=== PATIENT | male | born 1940 | race Caucasian/White ===

== ENCOUNTER 2017-11-02 06:47 | Inpatient (IN) ==
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
[2017-11-02] MEDS ORDERED: MIDAZOLAM 2mg/2ml INJECTION ONE (08:09)
[2017-11-02] MEDS ORDERED: FentaNYL 100 MCG/2 ML INJECTION ONE (08:09)
[2017-11-02] MEDS ORDERED: PROPOFOL 500 MG/50 ML VIAL IV ONE (08:16)
[2017-11-02] MEDS ORDERED: LIDOCAINE VISCOUS 2% ORAL LIQUID 15ml ONE (08:35)
--- NOTE | 2017-11-02 09:17 | General Surgery Procedure Note ---
Date of Procedure: 11/02/17 Surgeon: Deborah Postoperative Diagnosis: Malnutrition Procedure: EGD with placement of PEG tube Estimated Blood Loss: See Anesthesia Record.
[2017-11-02] MEDS ORDERED: BUDESONIDE INH.SOLN 0.5mg/2ml NEB AEROSOL PRN (10:02)
[2017-11-02] MEDS: D5-1/2NS with KCL 20mEq 1,000 ML IV SCH ×2 (10:07→19:41)
[2017-11-02] MEDS: MORPHINE SULFATE 10 MG SYRINGE IV PRN ×4 (10:16→19:36)
[2017-11-02] MEDS ORDERED: FALL RISK - PHARMACY CONSULT XX ONE (10:38)
[2017-11-02] MEDS ORDERED: LIDOCAINE 1% (10mg/ml) 2mL INJ PF SDV ID ONE (13:55)
[2017-11-02] MEDS ORDERED: CEFAZOLIN 1 G INJECTION IVP ONE (13:56)
[2017-11-02] MEDS ORDERED: LR 1,000 ML IV SCH (14:00)
[2017-11-02] MEDS: PANTOPRAZOLE 40 MG INJECTION IVP SCH ×2 (19:35→21:16)
[2017-11-03] MEDS: MORPHINE SULFATE 10 MG SYRINGE IV PRN ×6 (00:43→21:09)
[2017-11-03] MEDS: D5-1/2NS with KCL 20mEq 1,000 ML IV SCH ×2 (05:15→17:35)
[2017-11-03] MEDS: PANTOPRAZOLE 40 MG INJECTION IVP SCH ×2 (10:28→21:08)
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
--- NOTE | 2017-11-03 12:24 | Operative Note ---
DATE OF OPERATION 11/02/2017 PREOPERATIVE DIAGNOSES 1. Dysphagia 2. Tracheal penetration with all given consistencies demonstrated on 2016 modified barium swallow study. 3. Generalized weakness. 4. Weight loss. POSTOPERATIVE DIAGNOSES 1. Dysphagia 2. Tracheal penetration with all given consistencies demonstrated on 2016 modified barium swallow study. 3. Generalized weakness. 4. Weight loss. 5. Duodenal ulcer. 6. Recent active upper gastrointestinal tract bleeding from duodenal ulcer. OPERATION Esophagogastroduodenoscopy with directed placement of percutaneous endoscopic gastrostomy tube (percutaneous endoscopic gastrostomy). SURGEON Dr. Cabrera [facility] ASA Class 3 FINDINGS The esophagus appeared normal. The stomach appeared normal except for the presence of some old black flecks of blood in the stomach thought to be present from recent gastrointestinal tract bleeding from the duodenal ulcer. The patient did have a [id number] size ulcer at the duodenal bulb. This was a deep ulcer. There was some white fibrinous exudate at the base of some of this ulcer. Some of the base of the ulcer was covered with old black blood clot which was adherent to the base of the ulcer. It was thought that the patient had been experiencing recent active gastrointestinal tract bleeding from the duodenal ulcer during the previous 24 hours. No abnormalities were seen at the esophagus to cause the dysphagia. No esophageal stricture was observed anywhere. There was no neoplastic disease identified at the esophagus. The pylorus was wide open. There was no gastric outlet obstruction. There were no retained solid or liquid food contents in the stomach. DESCRIPTION OF OPERATION The patient was brought to the operating room. The patient was kept on a cart. The patient was initially in [place] position. The patient was premedicated with intravenous sedation medication administered by the nurse bus attendant. The Olympus upper GI endoscope was used. The upper GI endoscope was introduced into the esophagus. The upper GI endoscope was advanced down through the esophagus and stomach and into the duodenum. The duodenal ulcer was identified. The upper GI endoscope was then withdrawn from the duodenum back into the stomach. The endoscopic biopsy forceps was used to obtain a sample of prepyloric antral gastric mucosa which was submitted for YENI test studies. The upper GI endoscope was retroflexed and the gastroesophageal junction was viewed from below. The upper GI endoscope was straightened out. The stomach was examined further. The position of the bed was then changed to supine position. Air was insufflated into the stomach. Room lights were dimmed. The tip of the upper GI endoscope was deflected to the anterior surface of the stomach. The abdominal skin was depressed with a finger at the intended insertion site at the left upper quadrant of the abdomen. The resulting depression at the anterior surface of the gastric wall was able to be seen easily with the upper GI endoscope. Light was also seen transilluminating through the abdominal wall from the tip of the upper GI endoscope. A site for insertion of the percutaneous endoscopic gastrostomy tube was marked on the skin at the left upper quadrant of the abdomen. This was at the point where there was maximum depression at the gastric wall as the skin at the left upper quadrant of the abdomen was depressed with a finger. The abdomen was prepped and draped in routine sterile fashion. The skin and all other abdominal wall structures were infiltrated with bupivacaine 0.25% without epinephrine at the intended insertion site. A [employer] guidewire percutaneous endoscopic gastrostomy system with soft silicone retention dome was used for the procedure. This contained a 20-Monegas[place] silicone gastrostomy feeding tube with a soft silicone retention dome. A short incision was made at the percutaneous endoscopic gastrostomy tube site at the left upper quadrant of the abdomen. A guidewire introducer needle was inserted percutaneously at the gastrostomy tube insertion site. The soft end of the guidewire was inserted through the introducer needle into the stomach. The polypectomy snare was introduced into the stomach through the operating channel of the upper GI endoscope. The snare was used to grasp the soft end of the guidewire. The upper GI endoscope and the polypectomy snare were then withdrawn out through the stomach and esophagus pulling the guidewire along with them out through the stomach and esophagus as the guidewire was being inserted through the introducer needle at the abdomen. The upper GI endoscope and the polypectomy snare were then removed from the patient. The guidewire was brought out along with them through the oropharynx. The snare was removed from the guidewire. The tapered dilator and attached gastrostomy tube were then introduced over the guidewire which was exiting from the patient' s mouth. The entire tapered dilator and attached gastrostomy tube were introduced onto the guidewire before the dilator was advanced down into the oropharynx. The tapered dilator and the attached gastrostomy tube were then advanced over the guidewire and into the oropharynx and through the esophagus into the stomach. The tapered dilator and the attached gastrostomy tube were then advanced further over the guidewire to advance the tapered dilator through the anterior wall of the stomach and the anterior abdominal wall at the gastrostomy tube insertion site. As the end of the tapered dilator came out through the abdominal wall at the gastrostomy tube insertion site, it was able to be grasped and pulled out through the anterior abdominal wall. This allowed the gastrostomy tube to be pulled out through the anterior abdominal wall. The guidewire was then removed by pulling it out through the abdominal site. The upper GI endoscope was once again introduced into the esophagus and passed down through the esophagus down into the stomach. The soft silicone retention dome was able to be visualized with the upper GI endoscope as it was pulled up into a position adjacent to the gastric mucosa. The soft silicone retention dome was able to be rotated freely at this time as it was in a final position against the gastric mucosa. There was no blanching of the gastric mucosa. Visualization with the upper GI endoscope did confirm correct placement of the soft silicone retention dome. The retention sleeve was then advanced over the tapered dilator over the gastrostomy tube down into a position around the gastrostomy tube adjacent to the skin. An external bolster was then also advanced over the tapered dilator and the gastrostomy tube into a position in contact with retention sleeve. The upper GI endoscope was removed from the patient. The distal end of the gastrostomy tube was divided to remove the tapered dilator. The Y port connector was inserted at the end of the gastrostomy tube. The gastrostomy tube was placed to dependent drainage. The patient appeared to tolerate the operation well. Sterile dressings were applied over the gastrostomy tube. The patient did continue to receive intravenous sedation medication administered by the nurse bus attendant throughout the procedure as necessary to maintain patient comfort. The patient appeared to tolerate the operation well. The patient was transferred from the operating room to the recovery room in satisfactory condition. DESHAUN
--- NOTE | 2017-11-03 12:53 | Progress Note ---
DATE 11/03/2017 POSTOP DAY #1 HISTORY This patient did undergo esophagogastroduodenoscopy with placement of a percutaneous endoscopic gastrostomy tube yesterday at [facility]. He tolerated that procedure well. The patient has had mental status changes through the night last night with agitation and confusion and disorientation. The nurses did place an abdominal binder over the dressing at the abdomen to keep the patient from pulling out his PEG tube. The patient has had to have a sitter present with him in the room at all times because of all these mental status changes. The patient has been having output of normal-appearing gastric contents from the PEG tube. I did consult Dr. Prince Avalos this morning for help with medical management of the patient. Dr. Avalos is the primary care physician for this patient. I did discuss the condition of the patient with Dr. Avalos this morning. PHYSICAL EXAMINATION VITAL SIGNS: Temperature of the patient is 97.6 degrees Fahrenheit axillary. Pulse is 114. Respiratory rate is 18. Blood pressure is 146/90. Oxygen saturation is 93% on room air. ABDOMEN: I did remove the abdominal binder and the abdominal dressings and examined the PEG tube site today. The PEG tube site does have a satisfactory appearance. New dressings were then reapplied to the PEG tube site and the abdominal binder was then reapplied. LABORATORY DATA Hemoglobin was 13.7 and hematocrit was 42.6 yesterday. White blood cell count is 7200 today. Hemoglobin is 13.4. Hematocrit is 41.9. Serum sodium is 149. Serum potassium is 3.7. Serum creatinine is 0.6. Serum albumin is 6.1 today. Total protein is 6.4. Serum prealbumin is 9.7 today. The YENI test study result from esophagogastroduodenoscopy yesterday is negative. IMPRESSION 1. Oropharyngeal dysphagia 2. Tracheal penetration with all given consistencies demonstrated on 2016 modified barium swallow study. 3. Protein calorie malnutrition with decreased serum albumin and decreased serum prealbumin. 4. Weight loss. 5. Status post esophagogastroduodenoscopy with placement of percutaneous endoscopic gastrostomy tube on 11/02/2017. 6. Duodenal ulcer. 7. Recent upper gastrointestinal tract bleeding from duodenal ulcer. 8. Mental status changes including agitation, confusion and disorientation. 9. Personal history of prostate cancer. PLAN 1. Continue sequential compression devices for deep venous thrombosis prophylaxis. 2. Start tube feedings at this time with half-strength [employer] HN tube feedings at 50 mL/hr. 3. Decrease rate of administration of intravenous fluids. 4. Continuation of Protonix 40 mg IV daily at this point for treatment of the duodenal ulcer. Further treatment of the duodenal ulcer can be changed from intravenous medication to medication given via the percutaneous endoscopic gastrostomy tube. We probably need to add some Carafate to the treatment for the duodenal ulcer. 5. Start medication administration to the patient via the percutaneous endoscopic gastrostomy tube. 6. I did order some intravenous Haldol on a p.r.n. basis for the patient for use in treating mental status changes. Intravenous Ativan can also be continued. Cause for the mental status changes is being evaluated by Dr. Avalos. He is a considering ordering a CT head scan for the patient. 7. Dr. Avalos is consulted for medical management of the patient at this time and I greatly appreciate his help with this. 8. Case Management was asked to see the patient yesterday to help with disposition of the patient and they are actively working on this at the present time. DSEHAUN
[2017-11-04] MEDS: MORPHINE SULFATE 10 MG SYRINGE IV PRN ×4 (03:56→20:08)
[2017-11-04] MEDS: D5-1/2NS with KCL 20mEq 1,000 ML IV SCH ×2 (03:59→21:17)
[2017-11-04] MEDS: PANTOPRAZOLE 40 MG INJECTION IVP SCH ×2 (10:03→20:06)
[2017-11-04] MEDS ORDERED: PROPRANOLOL 20 MG/5 ML PEG SCH (10:30)
--- NOTE | 2017-11-04 10:47 | Internal Med Progress Note ---
Internal Medicine Subjective Patient seen and examined in his room. at the bedside. Questions answered. Roger is a little restless this morning but just received medication from the nursing staff. His tube feeding is in place and working nicely. He seems to be tolerating his tube feedings well. His sodium and chloride is a little elevated so I'll add additional free water. His creatinine yesterday were demonstrated good renal function so I will proceed with the MRI with and without contrast of his brain today. There is still no explanation as of yet to the etiology of his new onset weakness, dysphagia, and dysphasia. His alkaline phosphatase was elevated and with a history of metastatic prostate cancer I will check a liver function test this morning which includes a GGT to look for source of this alkaline phosphatase elevation. Exam Vital Signs: Temperature 96.8 F 11/04/17 08:00 Pulse Rate 102 H 11/04/17 08:00 Respiratory Rate 20 11/04/17 08:00 Blood Pressure 156/69 H 11/04/17 08:00 Pulse Oximetry 95 11/04/17 08:00 Height/Weight/BMI: Height 5 ft 9 in Weight 65 kg Body Mass Index 21.2 - Constitutional Present: mild distress, disheveled, agitated - Routine HEENT Exam Head: Present: normocephalic, atraumatic Eye: Present: conjunctivae pink. Absent: conjunctival icterus, scleral injection ENT: Present: mucous membranes moist, oropharynx clear, nares patent - Routine Neck Exam Absent: JVD, lymphadenopathy, thyromegaly - Routine Respiratory Exam Present: CTA bilaterally. Absent: accessory muscle use, rales, rhonchi, wheezes - Routine Cardiovascular Exam Present: RRR. Absent: S3, S4 - Routine Abdominal Exam Present: soft, normoactive bowel sounds Comments: PEG tube in place - Routine Extremities Exam Absent: cyanosis, clubbing, edema - Routine Skin Exam Absent: pallor, mottling, petechiae, urticaria, jaundice Comments: Saunders - Routine Neurological Exam Present: altered mental status, moving all extremities. Absent: alert, oriented X3 - Routine Psychiatric Exam Present: agitated. Absent: good insight, good judgment Internal Medicine Results - Labs CBC & Chem 7: 11/03/17 10:50 11/03/17 10:50 Labs: Short CBC 11/03/17 Range/Units 10:50 WBC 7.2 (4.5-11.0) T/MM3 Hgb 13.4 L (13.5-17.5) GM/DL Hct 41.9 (41-53) % Plt Count 343 (130-400) T/MM3 BMP 11/03/17 10:50 Sodium 149 H Potassium 3.7 Chloride 110 H Carbon Dioxide 32 H BUN 4.0 L Creatinine 0.6 L Glucose 138 H Calcium 8.8 Liver Function 11/03/17 Range/Units 10:50 Total Bilirubin 0.40 (0.20-1.30) MG/DL AST 111 H (17-59) U/L ALT 33 (21-72) U/L Alkaline Phosphatase 220 H (38-126) U/L Albumin 3.1 L (3.5-5.0) G/DL Progress Note-A&P - Time Spent With Patient Total time spent is greater than 50% in coordination of care (as documented) at patient's floor/unit and/or counseling patient: 25 - 35 minutes (1) Dysphagia Status: Acute Current Visit: Yes (2) Protein-calorie malnutrition, severe Status: Acute Current Visit: Yes (3) Excessive weight loss Status: Acute Current Visit: Yes (4) Excessive weight loss Status: Acute Current Visit: Yes (5) Mental status change Status: Acute Current Visit: Yes (6) Prostate cancer metastatic to intrapelvic lymph node Status: Chronic Current Visit: Yes (7) Dysphasia Status: Acute Current Visit: Yes (8) Alkaline phosphatase elevation Status: Acute Current Visit: Yes (9) Liver enzyme elevation Status: Acute Current Visit: Yes - Assessment and Plan I will reassess his liver enzymes as well as his gamma-glutamyl transferase. Additionally, I will order MRI of his brain with and without contrast to ascertain the source of his new onset dysphagia, dysphasia, weakness Hospital Course Summary Disclaimer: The visit summary below is not to be considered part of the above Progress Note.
[2017-11-04] MEDS ORDERED: GADOTERIDOL 279.3mg/ml - 15ml vial IVP ONE (14:41)
[2017-11-04] MEDS ORDERED: SALINE FLUSH 10ml SYRINGE ONE (14:41)
[2017-11-04] MEDS: ONDANSETRON 4 MG/2 ML INJECTION IVP PRN (16:32)
[2017-11-04] MEDS: PROPRANOLOL 20 MG/5 ML PEG SCH (20:07)
[2017-11-05] MEDS: D5-1/2NS with KCL 20mEq 1,000 ML IV SCH ×2 (00:11→22:00)
[2017-11-05] MEDS: ONDANSETRON 4 MG/2 ML INJECTION IVP PRN ×2 (00:59→06:54)
[2017-11-05] MEDS: MORPHINE SULFATE 10 MG SYRINGE IV PRN ×2 (02:44→23:09)
[2017-11-05] MEDS: PROPRANOLOL 20 MG/5 ML PEG SCH ×3 (05:35→22:00)
--- NOTE | 2017-11-05 08:06 | Progress Note ---
DATE 11/04/2017 POSTOP DAY #2 HISTORY The nurses report that the patient had less agitation and confusion during the night last night than during the previous night. He did still require some Ativan at one point during the night to help with agitation and restlessness. He is quietly sleeping at the present time. The nurses report that the tube feedings have been going well since they were started yesterday. The patient has been receiving half-strength Fibersource HN at 50 ml per hour through the PEG tube. The PEG tube flushes well. The patient has not had any bowel movements in the last 24 hours. PHYSICAL EXAMINATION VITAL SIGNS: Temperature is 96.8 degrees Fahrenheit oral. Pulse is 102 at this time. The pulse before that was 63. Respiratory rate is 20. Blood pressure is 156/69. Oxygen saturation is 95% on room air. ABDOMEN: Dressings are in place over the PEG tube site at the abdomen. The dressings are left in place today. The patient has an abdominal binder over this. The abdomen does appear to be soft and nondistended at examination today. LABORATORY DATA Serum sodium is 150. Serum potassium is 3.7. Serum creatinine is 0.5. Serum albumin is 2.6. Serum total protein is 6.2. IMPRESSION 1. Oropharyngeal dysphagia. 2. Tracheal penetration with all given consistencies demonstrated on 2016 modified barium swallow study. 3. Protein calorie malnutrition with decreased serum albumin, serum prealbumin and serum total protein. 4. Weight loss. 5. Status post esophagogastroduodenoscopy with placement of percutaneous endoscopic gastrostomy tube on 11/02/2017. 6. Duodenal ulcer. 7. Recent active upper gastrointestinal tract bleeding from duodenal ulcer. 8. Mental status changes including restlessness, agitation, confusion and disorientation which is improved a little bit compared to 24 hours ago. 9. Personal history of metastatic prostate cancer. 10. Hypernatremia. PLAN 1. Continue sequential compression devices for deep venous thrombosis prophylaxis. 2. The tube feedings will be advanced to 3/4 strength FiberSource HN tube feedings at [address] Avalos has also added more free water to the tube feedings because of the hypernatremia. 3. We will get a dietary consult tomorrow to determine the daily caloric needs of the patient and to determine a target to advance the tube feedings up to as far as the amount of caloric intake each day. 4. Continue Protonix intravenously at this point for treatment of the duodenal ulcer. We will probably have to change the continuous tube feedings to bolus feedings before we can start Carafate for treatment of the duodenal ulcer. 5. Dr. Avalos continues to provide medical management of the patient and his help with this is greatly appreciated. 6. Dr. Avalos is considering ordering an MRI of the head for the patient today to look for a source for this new-onset dysphagia, dysphasia and weakness. 7. Case management will continue to work on plans for disposition of the patient following discharge from this hospitalization. DESHAUN
[2017-11-05] MEDS: PANTOPRAZOLE 40 MG INJECTION IVP SCH ×2 (08:22→21:58)
[2017-11-05] MEDS ORDERED: IOHEXOL 300mg/ml 50ml INJECTION ONE (09:45)
[2017-11-05] MEDS ORDERED: NS 100 ML ONE (09:46)
[2017-11-05] MEDS ORDERED: SALINE FLUSH 10ml SYRINGE ONE (09:46)
--- NOTE | 2017-11-05 11:01 | CT Scan Report ---
EXAM: CT head/brain wo/w con HISTORY: mental status change, Hx Met Prostate CA COMPARISON: Prior examination dated 09/10/[address] W/W0 CONTRAST: Contiguous axial images of the brain with 48 cc of Omnipaque 300 intravenous contrast and without intravenous contrast were performed. The current CT scan was performed using radiation dose-reduction techniques. FINDINGS: There is diffuse cortical atrophy. There is proportionate prominence of the lateral ventricles which are midline without mass effect or shift. Normal elena-white matter differentiation is seen and there is no evidence of acute intracranial hemorrhage or acute transcortical infarct. No extra-axial masses or fluid collections are identified. There is diffuse periventricular white matter hypoattenuation in both cerebral hemispheres most likely reflecting extensive chronic small vessel ischemic change. 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 There is also an old lacunar infarct in the left basal ganglia. Brainstem and posterior fossa otherwise appear intact. The post-IV contrast images does not demonstrate any areas of abnormal enhancement. The visualized bony calvarium appears intact. There is mild nodular mucosal thickening in the ethmoid sinuses bilaterally, the remaining paranasal sinuses are clear as are the mastoid air cells. The orbits appear intact bilaterally. IMPRESSION: 1. No CT evidence of acute intracranial process or enhancing lesions. 2. Diffuse cortical atrophy and extensive periventricular white matter chronic small vessel ischemic change. 3. Old ischemic insults. 4. Mild chronic ethmoid sinus mucosal thickening. .
[2017-11-05] MEDS ORDERED: INFLUENZA VAC High Dose 2017-18 (Fluzone HD*) (>=65yo) 0.5ml IM ONE (15:03)
[2017-11-05] MEDS ORDERED: ClonazePAM 0.5 MG TABLET PO PRN (18:28)
--- NOTE | 2017-11-05 18:35 | Internal Med Progress Note ---
Internal Medicine Subjective Patient seen and examined in his room. at the bedside. Questions answered. Roger has been restless most of the day with periods of lucidity in conversations with his . CT of the brain demonstrated atrophy with enlarged ventricles and evidence of ischemic disease. No source for metabolic encephalopathy has been elucidated to this point. My highest suspicion for his acute mental status change is due to vascular dementia versus normal pressure hydrocephalus. Exam Vital Signs: Temperature 97.2 F 11/05/17 16:15 Pulse Rate 79 11/05/17 16:45 Respiratory Rate 18 11/05/17 16:45 Blood Pressure 123/70 11/05/17 16:45 Pulse Oximetry 90 11/05/17 16:45 Height/Weight/BMI: Height 5 ft 9 in Weight 65.5 kg Body Mass Index 21.3 - Constitutional Present: mild distress, thin, cachectic, disheveled, agitated - Routine HEENT Exam Head: Present: normocephalic, atraumatic Eye: Present: EOMI, PERRL. Absent: conjunctival icterus, scleral injection, conjunctivae pink ENT: Present: mucous membranes moist, oropharynx clear, nares patent - Routine Neck Exam Present: supple. Absent: lymphadenopathy, thyromegaly - Routine Respiratory Exam Present: decreased breath sounds, CTA bilaterally. Absent: accessory muscle use , rhonchi, wheezes - Routine Cardiovascular Exam Present: RRR. Absent: S3, S4 - Routine Abdominal Exam Comments: PEG tube in place with a binder - Routine Extremities Exam Absent: cyanosis, clubbing, edema Comments: Decreased muscle mass - Routine Skin Exam Present: intact. Absent: cyanosis, erythema, mottling, petechiae, urticaria, jaundice - Routine Neurological Exam Present: altered mental status, moving all extremities. Absent: alert, oriented X3 - Routine Psychiatric Exam Present: agitated. Absent: normal affect, good insight, good judgment Internal Medicine Results - Labs CBC & Chem 7: 11/05/17 04:51 11/05/17 04:51 Labs: Short CBC 11/05/17 Range/Units 04:51 WBC 6.5 (4.5-11.0) T/MM3 Hgb 12.6 L (13.5-17.5) GM/DL Hct 40.3 L (41-53) % Plt Count 305 (130-400) T/MM3 [facility] 11/05/17 04:51 Sodium 147 H Potassium 3.9 Chloride 111 H Carbon Dioxide 30 BUN 8.0 L D Creatinine 0.5 L Glucose 128 H Calcium 8.7 Liver Function 11/04/17 11/05/17 Range/Units 08:05 04:51 Total Bilirubin 0.30 (0.20-1.30) MG/DL GGT 31 (12-64) U/L AST 98 H (17-59) U/L ALT 38 (21-72) U/L Alkaline Phosphatase 206 H (38-126) U/L Albumin 2.8 L (3.5-5.0) G/DL - Imaging and Cardiology CT scan - head Status: image reviewed by me (enlarged ventricles possibly consistent with NPH) Progress Note-A&P - Time Spent With Patient Total time spent is greater than 50% in coordination of care (as documented) at patient's floor/unit and/or counseling patient: greater than 35 minutes (1) Dysphagia Status: Acute Current Visit: Yes (2) Protein-calorie malnutrition, severe Status: Acute Assessment and plan: Patient is tolerating his tube feedings with 0 residual Current Visit: Yes (3) Excessive weight loss Status: Acute Current Visit: Yes (4) Mental status change Status: Acute Assessment and plan: Patient is agitated. Differential diagnosis should include vascular dementia versus mph versus other Current Visit: Yes (5) Prostate cancer metastatic to intrapelvic lymph node Status: Chronic Current Visit: Yes (6) Dysphasia Status: Acute Current Visit: Yes (7) Alkaline phosphatase elevation Status: Acute Current Visit: Yes (8) Liver enzyme elevation Status: Acute Current Visit: Yes - Assessment and Plan Patient has been given clonazepam 0.5 mg up to 3 times a day at home his indicates that he usually takes it twice. He is more confused since being in the hospital but did have some more lucidity today in conversation with his . At this time I'm very concerned that he will pull his feeding tube out if left alone. As this could be deadly event for him causing peritonitis need for subsequent laparotomy. At this time I would consider consultation with generations to see if we could get a better handle on his mental status change continue his tube feedings and have time for the PEG tube to stabilize. Hospital Course Summary Disclaimer: The visit summary below is not to be considered part of the above Progress Note.
[2017-11-05] MEDS: HALOPERIDOL 5 MG/ML INJECTION IVP PRN (20:19)
--- NOTE | 2017-11-05 20:47 | Progress Note ---
DATE 11/05/2017 POSTOP DAY #3 HISTORY This patient has had continued restlessness and confusion and disorientation most of the time. He did have a few times today where he was a little more lucid in the conversations with his . The patient has required one-to-one care by a medical investigator since the time of his operation to keep the patient from reaching down and pulling out his percutaneous endoscopic gastrostomy tube. If the percutaneous endoscopic gastrostomy tube is pulled out this soon after the operation the patient would have peritonitis from leakage of gastric acid and tube feedings from the stomach into the peritoneal cavity and require a laparotomy for treatment of this which he probably would not survive. The patient has therefore required one-to-one care by a medical investigator to keep this from happening. The of the patient states that the patient did have clonazepam 0.5 mg p.o. t.i.d. p.r.n. ordered at home before the operation but only used it about twice a day. The patient is tolerating his tube feedings at three-fourths strength FiberSource HN at 50 ml/hour through the percutaneous endoscopic gastrostomy tube. He is having zero residual amounts according to the nurses. A dietitian was consulted yesterday to help see what the target will be for the caloric intake for the patient but the dietitian did not see the patient today. Physical Therapy was consulted to see the patient but the patient is not able to participate with physical therapy treatments due to his mental status changes. A referral was made for the inpatient rehabilitation unit for this patient. The referral was received and the case was reviewed with Dr. Koehler. Due to the cognitive impairment of the patient he does not meet inpatient rehabilitation unit criteria at this time. The patient is not able to participate with therapies because of his mental status changes. PHYSICAL EXAMINATION VITAL SIGNS: Temperature is 97.2 degrees Fahrenheit temporal. Pulse is 79. Respiratory rate is 18. Blood pressure is 123/70. Oxygen saturation is 90% on room air. ABDOMEN: The patient does have dressings and a binder in place over the percutaneous endoscopic gastrostomy tube site. The patient does not appear to have any abdominal distention. LABORATORY DATA The GGT was 31 yesterday. White blood cell count is 6500 today. Hemoglobin is 12.6. Hematocrit is 40.3. Serum sodium is 147. Serum potassium is 3.9. Serum creatinine is 0.5. Total bilirubin is 0.3. AST is 98. ALT is 38. Alkaline phosphatase is 206. Total protein is 6. Serum albumin is 2.8. A vitamin B12 level was ordered for the patient today and results of this are still pending. IMAGING DATA An MRI of the head was initially being considered for the patient today but the patient was not a candidate for an MRI because he could not hold still enough because of mental status changes to have the MRI performed. The patient did therefore undergo a CT scan of the head and brain with and without contrast today. There was no CT scan evidence of any acute intracranial process or enhancing lesions. The CT scan did show diffuse cortical atrophy and extensive periventricular white matter chronic small vessel ischemic change. There were old ischemic insults. 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 There was no metastatic disease from the prostate cancer. IMPRESSION 1. Oropharyngeal dysphagia. 2. Tracheal penetration with all given consistencies demonstrated on 2016 modified barium swallow study. 3. Protein calorie malnutrition with decreased serum albumin, serum prealbumin and serum total protein. 4. Weight loss. 5. Status post esophagogastroduodenoscopy with placement of percutaneous endoscopic gastrostomy tube on 11/02/2017. 6. Duodenal ulcer. 7. Recent active upper gastrointestinal tract bleeding from duodenal ulcer. 8. Mental status changes including recent restlessness, agitation, confusion and disorientation. This could be due to vascular dementia or normal pressure hydrocephalus. 9. Diffuse cortical atrophy with extensive periventricular white matter chronic small vessel ischemic change and old ischemic insults demonstrated on CT head/brain scan today. There is also some enlargement of ventricles suggesting possible normal pressure hydrocephalus. 10. Hypernatremia which is improved. 11. Personal history of metastatic prostate cancer. PLAN 1. Continue sequential compression devices for deep venous thrombosis prophylaxis. 2. The tube feedings are being advanced to full-strength FiberSource HN tube feedings at 50 mL/hr. We will also start increasing the rate of administration for the tube feedings. 3. We are still awaiting a dietary consultation to determine the daily caloric needs for the patient and determine the target to advance the tube feedings up to. 3. Continue Protonix intravenously at this point for treatment of the duodenal ulcer. 4. Dr. Avalos is starting the patient on clonazepam 0.5 mg p.o. t.i.d. p.r.n. and Seroquel 20 mg p.o. at bedtime daily. This was started today. 6. Dr. Avalos continues to provide medical management of the patient. 7. We are still working with Case Management with plans for disposition of the patient following discharge from the hospital. The patient is still requiring one-to-one care with an aide sitting in the room next to the patient 24 hours around the clock at this time to keep the patient from pulling out his percutaneous endoscopic gastrostomy tube. If the patient is left alone, there is concern that after a short period of time he will pull out his percutaneous endoscopic gastrostomy tube because of his mental status changes. The results of this could be lethal for the patient since the stomach with drop away from the abdominal wall and gastric contents and tube feedings would spill into the peritoneal cavity causing peritonitis. The patient would require emergency laparotomy to treat this situation which he probably would not survive with all of his other comorbidities at this time. This does make disposition of the patient difficult because he cannot be dismissed from the hospital to some situation where he would be left alone without one-to-one care at this time with altered mental status changes of the patient. One option might be to have the patient transition from this acute care hospitalization to the [facility] at [facility] where these mental status changes could continue to be addressed and where he might still be able to have some one-to-one care of the patient to keep him from pulling out his gastrostomy tube and where he could have continued followup for treatment of the acute medical problems which he is experiencing. DESHAUN
[2017-11-05] MEDS ORDERED: QUETIAPINE 25 MG TABLET PO SCH (21:00)
[2017-11-06] MEDS: HALOPERIDOL 5 MG/ML INJECTION IVP PRN (00:46)
[2017-11-06] MEDS: MORPHINE SULFATE 10 MG SYRINGE IV PRN ×5 (02:51→21:52)
[2017-11-06] MEDS: PROPRANOLOL 20 MG/5 ML PEG SCH ×3 (06:26→21:42)
[2017-11-06] MEDS: PANTOPRAZOLE 40 MG INJECTION IVP SCH ×2 (09:14→21:42)
--- NOTE | 2017-11-06 13:14 | 24 Hour Neuropsychiatic Eval ---
Date of Admission: 11/03/17 16:47 Chief complaint: Agitation History of Present Illness: Patient is a 77-year-old , male s/p EGD with PEG placement on 11/02 due to malnutrition. Patient has had intermittent agitation, pulling at IV tubing and PEG site, etc. since the procedure thus psychiatry was consulted for medication recommendations. Per hospitalist, patient was "admitted for PEG tube placement secondary to significant oral pharyngeal dysphasia, protein calorie malnutrition, and significant weight loss. He also has a history of metastatic prostate cancer for which she has undergone radiation therapy and anti-hormonal therapy his states that his most recent PSA 1-2 months ago was less than 1. He was last able to walk and do activities of daily living in July. Since that time he has become increasingly weak and has developed dysphagia of unknown etiology. Because of this, he has sustained significant weight loss, and now has some mental status changes." Patient is seen on interview and opens his eyes but does not answer any of my interview questions. I spoke with patient's in the hallway and she reported that patient was recently started on Klonopin due to difficulty swallowing, to help him relax, but she estimates he was taking 0.5mg BID. She denies that the patient used any alcohol in the past 4-5 months. She reports that patient was not eating, was sleeping more a week prior to procedure. She states that yesterday morning he was much more cognitively intact. FORMERLY [facility], [facility] Patient Stated Medical History Cataracts Yes Dysphagia Yes Glaucoma Yes: STARTING Hearing Loss Yes: WEARS VANG Angina No: denies chest pain Coronary Artery Disease Yes: CABG 2004, no SC or muscle damage, no CHF hx Hypertension Yes Chronic Obstructive Pulmonary Yes: MILD Disease (COPD) Gastroesophageal Reflux No Disease Other GI Yes Hx Benign Prostatic Yes Hyperplasia Other Yes: PROSTATE CANCER Anesthesia Reactions Yes: SLOW TO WAKE Other Reproductive Yes: prostate cancer Clinic Medical History (Last Reviewed 05/02/17 @ 14:30 by Parker Bentley MD) Prostate cancer metastatic to intrapelvic lymph node (Chronic Medical) Dysphagia (Acute Medical) Protein-calorie malnutrition, severe (Acute Medical) Excessive weight loss (Acute Medical) Excessive weight loss (Acute Medical) Mental status change (Acute Medical) Dysphasia (Acute Medical) Alkaline phosphatase elevation (Acute Medical) Liver enzyme elevation (Acute Medical) Prostate CA (Acute Medical) Arthritis (Chronic Medical) Blind left eye (Chronic Medical) CAD (coronary artery disease) (Chronic Medical) High cholesterol (Chronic Medical) Dehydration (Inactive Medical) Dysphagia (Inactive Medical) Generalized weakness (Inactive Medical) Surgical History: This patient has had previous operations and procedures as follows: 1. Bilateral inguinal hernia repair in [address] Patrick Rivas at [facility] at [place], [place]. 2. Complete bilateral laminectomies of L2-L3 and L4 with noninstrumented autograft fusion at L2-L3 and L3-L4 bilaterally on 01/24/[address] Kenn Grimes at the [facility] at [place], [place]. Postoperative diagnosis was lumbar stenosis at L2, L3 and L4 with severe degenerative disk disease and facet arthropathy at these levels. 3. Total colonoscopy with polypectomy on 09/13/[address] Cabrera at [facility] at [place], [place]. The patient had some internal and external hemorrhoids with prominent external hemorrhoids found at the time of this procedure. The patient did have a rectal polyp and a colon polyp removed at this procedure. Each of these polyps was a hyperplastic polyp. 4. Cardiac catheterization on 09/13/[address] Jignesh Lyman at [facility] at [place], [place]. This did show severe three-vessel coronary artery disease. The patient did have normal left ventricular systolic function. 5. Five-vessel coronary artery bypass operation on 09/15/[address] Da Maria at [facility] at [place], [place]. Discharge diagnoses for this hospitalization were coronary artery disease, hyperlipidemia, hypertension and gastroesophageal reflux. 6. Total colonoscopy with polypectomy on 09/21/[address] Cabrera at [facility] at [place], [place]. The patient had some sigmoid colon diverticulosis. The patient had internal and external hemorrhoids. The patient did have three colon polyps removed at this colonoscopy procedure. These were all three adenomatous colon polyps. 7. Cystoscopy with TURP on 09/[address] Tino Jay at [facility] at [place], [place]. Postoperative diagnosis was prostate cancer with urinary retention. The patient has had other previous hospitalizations as follows: Hospitalized in 1958 at [facility] at [place], [place]. The patient had head trauma at this time. 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 He also had some damage to the left optic nerve. He was hospitalized for two weeks at this time. Family History: Family History (Last Reviewed 05/02/17 @ 14:30 by Parker Bentley MD) Mother CHF (congestive heart failure) Brother Lung cancer Family History Updates: Psych family hx unobtainable from patient, not pertinent to presentation - Social History Current residence: Apartment/Private Home Review of Systems ROS unobtainable: due to mental status Mental Status Exam Vitals: Last Vital Signs Temp 95.4 F L 11/06/17 08:00 Pulse 72 11/06/17 08:00 Resp 16 11/06/17 08:00 BP 108/57 11/06/17 08:00 Pulse Ox 99 11/06/17 08:00 Height: 1.75 m Weight: 64.9 kg - Mental Status Exam Muscle Strength/Tone: Weak Dressing: Other (Hospital gown) Grooming: Disheveled Attitude: Uncooperative Motor Activity: Retardation, Other (Intermittent agitation, restlessness) Eye Contact: Poor Speech: Slowed Volume: Soft Rhythm: Paucity of Language Sensory: Stupor Orientation: Oriented to person Mood: Other (Does not answer in regards to mood) Affect: Flat Rate of Thoughts: Delayed Thought Organization: Confused Abstract Reasoning: Impaired, concrete Thought Content: Other (Unable to assess as patient is stuporous, does not answer) Perception/Psychotic: Other (No reports of psychosis from staff) Language: Naming Impaired Fund of Knowledge: Other (decreased) Memory: Poor-recent Suicidal Ideation: None Homicidal Ideation: None Insight: Impaired Judgement: Impaired Impulse Control: Poor - Laboratory Result Diagrams: 11/06/17 09:28 11/06/17 09:28 Laboratory Results - last 24 hr 11/04/17 11/04/17 11/06/17 08:05 08:05 09:28 WBC 6.8 RBC 4.39 L Hgb 12.4 L Hct 41.1 MCV 93.6 MCH 28.2 MCHC 30.2 L RDW Std Deviation 46.7 Plt Count 287 MPV 8.9 L Immature Gran % (Auto) 1.6 H Neut % (Auto) 73.2 H Lymph % (Auto) 15.8 L Iron % (Auto) 7.5 Eos % (Auto) 1.5 Baso % (Auto) 0.4 Neut # (Auto) 5.0 Lymph # (Auto) 1.1 Iron # (Auto) 0.5 Eos # (Auto) 0.1 Baso # (Auto) 0.0 Abs Immat Gran (auto) 0.11 H Turbidity Sodium Potassium Chloride Carbon Dioxide Anion Gap BUN Creatinine GFR Calculation BUN/Creatinine Ratio Glucose Calculated Osmolality Calcium Total Bilirubin Conjugated Bilirubin Unconjugated Bilirubin Icterus Index GGT 31 AST ALT Alkaline Phosphatase Total Protein Albumin Globulin Albumin/Globulin Ratio Prealbumin Cortisol AM Sample 9 Specimen Hemolysis 11/06/17 09:28 WBC RBC Hgb Hct MCV MCH MCHC RDW Std Deviation Plt Count MPV Immature Gran % (Auto) Neut % (Auto) Lymph % (Auto) Iron % (Auto) Eos % (Auto) Baso % (Auto) Neut # (Auto) Lymph # (Auto) Iron # (Auto) Eos # (Auto) Baso # (Auto) Abs Immat Gran (auto) Turbidity < 20 Sodium 145 H Potassium 5.5 H D Chloride 108 H Carbon Dioxide 33 H Anion Gap 4 L BUN 10.0 Creatinine 0.6 L GFR Calculation 130 BUN/Creatinine Ratio 17 Glucose 240 H Calculated Osmolality 286 H Calcium 8.4 Total Bilirubin 0.50 Conjugated Bilirubin 0.00 Unconjugated Bilirubin 0.20 Icterus Index < 2 GGT AST 110 H ALT 53 Alkaline Phosphatase 218 H Total Protein 6.0 L Albumin 2.7 L Globulin 3.3 Albumin/Globulin Ratio 0.8 L Prealbumin 12.0 L Cortisol AM Sample Specimen Hemolysis < 15 Assessment and Plan (1) Delirium due to multiple etiologies, acute, hyperactive Current visit: Yes Status: Acute (2) Prostate cancer metastatic to intrapelvic lymph node Current visit: Yes Status: Chronic (3) Protein-calorie malnutrition, severe Current visit: Yes Status: Acute Patient has hyperactive delirium due to multiple etiologies - some of which include suspected sedative withdrawal (patient was taking Klonopin BID prior to procedure), recent anesthesia, deliriogenic medications including narcotics, metastatic cancer, malnutrition. Unable to assess underlying cognitive status currently but any deficits would predispose to development of delirium. In regards to medication management, would recommend the following: - While sedative withdrawal may be part of presentation, do not recommend restarting Klonopin as this can accumulate in older patients leading to more confusion, falls, etc. Will discontinue the PRN medication. - Will schedule Haldol 0.5mg IV BID to target agitation and hold Seroquel for the time being (to avoid using multiple antipsychotics). - Will schedule melatonin at HS to try to help restore sleep-wake cycle, which is characteristically disrupted in delirium. - Recommend continued use of IV Ativan and Haldol in the meantime PRN agitation. Monitor for akathisia (increased restlessness) with Haldol use. Benzodiazepines can be deliriogenic as well but I think use is necessitated right now to prevent patient from pulling PEG tube out. - While I understand need for narcotics, any possibility of minimizing use will help resolve delirium quicker. - Continue to monitor and follow Vitamin B12, folate levels. Psychiatry will continue to follow. Thank you for this consult, please contact me if you have further questions.
[2017-11-06] MEDS: MULTI VITAMIN PO SCH (13:55)
[2017-11-06] MEDS: D5-1/2NS with KCL 20mEq 1,000 ML IV SCH ×2 (15:16→17:59)
--- NOTE | 2017-11-06 18:19 | Internal Med Progress Note ---
Internal Medicine Subjective Patient seen and examined in his room. at the bedside. Questions answered. Patient is still quite confused today. He is not combative he is just having delirium. Neuropsych eval completed. His potassium is high today so I will stop his IV fluids which contain potassium and recheck his levels in the morning. He was given morphine in the [employer] employee hours and seemed to relax and sleep for about 4 hours according to his . Exam Vital Signs: Temperature 98.5 F 11/06/17 14:26 Pulse Rate 84 11/06/17 14:26 Respiratory Rate 16 11/06/17 14:26 Blood Pressure 117/68 11/06/17 14:26 Pulse Oximetry 90 11/06/17 14:26 Height/Weight/BMI: Height 5 ft 9 in Weight 64.9 kg Body Mass Index 21.3 - Constitutional Present: mild distress, cachectic, agitated, somnolent - Routine HEENT Exam Head: Present: normocephalic, atraumatic - Routine Respiratory Exam Present: CTA bilaterally. Absent: respiratory distress - Routine Cardiovascular Exam Present: RRR. Absent: S3, S4 - Routine Abdominal Exam Present: soft, normoactive bowel sounds, tenderness (at surgical site). Absent : rebound, guarding, rigid - Routine Extremities Exam Absent: cyanosis, clubbing, edema - Routine Skin Exam Present: intact. Absent: cyanosis, erythema, mottling, petechiae, urticaria, jaundice - Routine Neurological Exam Present: altered mental status, moving all extremities. Absent: alert, oriented X3 - Routine Psychiatric Exam Present: agitated. Absent: normal affect, good insight, good judgment Internal Medicine Results - Labs CBC & Chem 7: 11/06/17 09:28 11/06/17 09:28 Labs: Short CBC 11/06/17 Range/Units 09:28 WBC 6.8 (4.5-11.0) T/MM3 Hgb 12.4 L (13.5-17.5) GM/DL Hct 41.1 (41-53) % Plt Count 287 (130-400) T/MM3 [facility] 11/06/17 09:28 Sodium 145 H Potassium 5.5 H D Chloride 108 H Carbon Dioxide 33 H BUN 10.0 Creatinine 0.6 L Glucose 240 H Calcium 8.4 Liver Function 11/06/17 Range/Units 09:28 Total Bilirubin 0.50 (0.20-1.30) MG/DL AST 110 H (17-59) U/L ALT 53 (21-72) U/L Alkaline Phosphatase 218 H (38-126) U/L Albumin 2.7 L (3.5-5.0) G/DL Progress Note-A&P - Time Spent With Patient Total time spent is greater than 50% in coordination of care (as documented) at patient's floor/unit and/or counseling patient: (1) Dysphagia Status: Acute Current Visit: Yes (2) Protein-calorie malnutrition, severe Status: Acute Assessment and plan: Patient stated feedings were advanced to bolus feedings. Current Visit: Yes (3) Excessive weight loss Status: Acute Current Visit: Yes (4) Mental status change Status: Acute Assessment and plan: Patient is agitated. Differential diagnosis should include vascular dementia versus mph versus other Current Visit: Yes (5) Prostate cancer metastatic to intrapelvic lymph node Status: Chronic Current Visit: Yes (6) Dysphasia Status: Acute Current Visit: Yes (7) Alkaline phosphatase elevation Status: Acute Current Visit: Yes (8) Liver enzyme elevation Status: Acute Current Visit: Yes Hospital Course Summary Disclaimer: The visit summary below is not to be considered part of the above Progress Note.
--- NOTE | 2017-11-06 19:52 | Progress Note ---
DATE 11/06/2017 POSTOP DAY #4 HISTORY The patient was still quite confused today. The patient has continued to require one-to-one care by a sitter at this time to keep the patient from reaching down and pulling out his percutaneous endoscopic gastrostomy tube. If the percutaneous endoscopic gastrostomy tube is pulled out this soon after the operation the patient would have peritonitis from leakage of gastric acid and tube feedings from the stomach into the peritoneal cavity and require laparotomy for treatment of this which he probably would not survive. The patient has therefore required one-to-one care by a sitter to keep this from happening. A [facility] was ordered for the patient today to see if he is a candidate for admission to the [facility] where he could continue to have this one-to-one care by a sitter to keep him from pulling out his percutaneous endoscopic gastrostomy tube until his mental status improves enough that there is no longer risk of this. The patient did undergo a neuropsychiatric consultation by Dr. Sammi Gerard today as part of this screening process. Dr. Gerard did discontinue the clonazepam and Seroquel which were started by Dr. Avalos yesterday. Dr. Gerard did start the patient on Haldol 0.5 mg IV b.i.d. We are still awaiting results of the [facility] screening process to see if the patient would be a candidate for admission to the [facility]. The patient is continuing to tolerate his tube feedings. He has been receiving full-strength FiberSource HN at 50 mL/hr through the percutaneous endoscopic gastrostomy tube. Dr. Avalos did change the tube feedings from continuous feedings to bolus feedings today. The patient was having zero gastric residual amounts earlier today as he was receiving the continuous tube feedings. A dietitian consult was received today with recommendations for the caloric requirements of the patient and the amount of tube feedings he would need to achieve the targeted caloric intake. The serum potassium of the patient was noted to be 5.5 today. The patient does have potassium in his intravenous fluids. The intravenous fluid administration was stopped by Dr. Avalos to help correct the hyperkalemia. PHYSICAL EXAMINATION VITAL SIGNS: Temperature is 98.5 degrees Fahrenheit oral. Pulse is 84. Respiratory rate is 16. Blood pressure is 117/68. Oxygen saturation is 90% on room air. ABDOMEN: The patient does have dressings and a binder in place over the percutaneous endoscopic gastrostomy tube site. The patient does not appear to have any abdominal distention. LABORATORY DATA White blood cell count is 6800. Hemoglobin was 12.4. Hematocrit is 41.1. Serum sodium was 145 today. Serum potassium is elevated at 5.5. Serum creatinine is 0.6. Alkaline phosphatase remains elevated at 218. AST is 110. ALT is 53. Total protein is 6. Serum albumin is 2.7. The prealbumin is 12 today. IMPRESSION 1. Oropharyngeal dysphagia. 2. Tracheal penetration with all given consistencies demonstrated on 2016 modified barium swallow study. 3. Protein calorie malnutrition with decreased serum albumin, serum prealbumin and serum total protein. 4. Weight loss. 5. Status post esophagogastroduodenoscopy with placement of percutaneous endoscopic gastrostomy tube on 11/02/2017. 6. Duodenal ulcer. 7. Recent active upper gastrointestinal tract bleeding from duodenal ulcer. 8. Mental status changes including recent restlessness, agitation, confusion and disorientation. 9. Hypernatremia which is continuing to improve. 10. Hyperkalemia. 11. Personal history of metastatic prostate cancer. PLAN 1. Continue sequential compression devices for deep venous thrombosis prophylaxis. 2. Continue tube feedings with FiberSource HN via the percutaneous endoscopic gastrostomy tube. The patient was changed to bolus feedings today. 3. Continue Protonix intravenously at this point for treatment of the duodenal ulcer. 4. Continue medical management of the patient by Dr. Avalos. 5. Continue to work on plans for disposition of the patient following this acute care hospitalization. We are waiting to see if the patient is a candidate for acceptance to the [facility]. The patient is still requiring one-to-one care with a sitter present in the room with the patient 24 hours [id number] at this time to keep the patient from pulling out his percutaneous endoscopic gastrostomy tube. If the patient is left alone, there is concern that after a short period of time he will pull out his percutaneous endoscopic gastrostomy tube because of his mental status changes. The results of this could be lethal for the patient since the stomach would drop away from the abdominal wall and the gastric contents and tube feedings would spill into the peritoneal cavity causing peritonitis. The patient would require emergency laparotomy to treat this situation which he probably would not survive with all of his comorbidities that he has at this time. This does make disposition of the patient difficult because he cannot be dismissed from the hospital to a setting where he would be left alone without one-to-one care at this time to keep him from pulling out his percutaneous endoscopic gastrostomy tube. DESHAUN
[2017-11-06] MEDS ORDERED: MELATONIN 5 MG TABLET PO SCH (21:00)
[2017-11-06] MEDS: HALOPERIDOL 5 MG/ML INJECTION IVP SCH (21:43)
[2017-11-07] MEDS: PROPRANOLOL 20 MG/5 ML PEG SCH ×3 (05:27→20:11)
[2017-11-07] MEDS: MORPHINE SULFATE 10 MG SYRINGE IV PRN (05:27)
[2017-11-07] MEDS: PANTOPRAZOLE 40 MG INJECTION IVP SCH (10:10)
--- NOTE | 2017-11-07 10:43 | Internal Med Progress Note ---
Internal Medicine Subjective Patient seen and examined in his room. and son at the bedside. Questions answered. Roger appears much improved this morning. Nursing states that he slept well last night. He is more lucid and able to converse this morning. He still complains of right wrist and arm pain. Denies chest pain and his abdominal pain is well controlled. No bowel movement yet. He was able to walk with assist to the bathroom for the first time. Exam Vital Signs: Temperature 97.2 F 11/06/17 22:00 Pulse Rate 85 11/07/17 06:00 Respiratory Rate 16 11/07/17 06:00 Blood Pressure 140/76 H 11/07/17 06:00 Pulse Oximetry 97 11/07/17 06:00 Telemetry Rhythm: Sinus Rhythm Height/Weight/BMI: Height 5 ft 9 in Weight 64.9 kg Body Mass Index 21.3 - Constitutional Present: no acute distress, cachectic, cooperative - Routine HEENT Exam Head: Present: normocephalic, atraumatic Eye: Present: EOMI, PERRL. Absent: conjunctival icterus, scleral injection, conjunctivae pink ENT: Present: oropharynx clear, nares patent - Routine Neck Exam Absent: lymphadenopathy, thyromegaly - Routine Respiratory Exam Present: CTA bilaterally. Absent: accessory muscle use - Routine Cardiovascular Exam Present: RRR. Absent: S3, S4 - Routine Abdominal Exam Present: soft, normoactive bowel sounds, tenderness (postsurgical), non distended. Absent: rebound, guarding, rigid - Routine Extremities Exam Present: extremity cold to touch (both hands are cold to touch). Absent: cyanosis, clubbing, edema - Routine Skin Exam Present: intact. Absent: cyanosis, erythema, mottling, petechiae, urticaria, jaundice - Routine Neurological Exam Present: alert, CN II-XII intact. Absent: oriented X3 (alert to person and recognizes family members) - Routine Psychiatric Exam Present: normal affect, cooperative. Absent: good insight, good judgment, anxious, agitated Internal Medicine Results - Labs CBC & Chem 7: 11/07/17 04:24 11/07/17 04:24 Labs: Short CBC 11/07/17 Range/Units 04:24 WBC 6.8 (4.5-11.0) T/MM3 Hgb 12.9 L (13.5-17.5) GM/DL Hct 40.7 L (41-53) % Plt Count 242 (130-400) T/MM3 BMP 11/07/17 04:24 Sodium 142 Potassium 4.1 D Chloride 107 Carbon Dioxide 32 H BUN 13.0 Creatinine 0.5 L Glucose 98 Calcium 8.4 Liver Function 11/07/17 Range/Units 04:24 Total Bilirubin 0.40 (0.20-1.30) MG/DL AST 113 H (17-59) U/L ALT 59 (21-72) U/L Alkaline Phosphatase 215 H (38-126) U/L Albumin 2.6 L (3.5-5.0) G/DL Progress Note-A&P - Time Spent With Patient Total time spent is greater than 50% in coordination of care (as documented) at patient's floor/unit and/or counseling patient: 25 - 35 minutes (1) Dysphagia Status: Acute Current Visit: Yes (2) Protein-calorie malnutrition, severe Status: Acute Assessment and plan: Patient stated feedings were advanced to bolus feedings. Current Visit: Yes (3) Excessive weight loss Status: Acute Current Visit: Yes (4) Mental status change Status: Acute Assessment and plan: Patient is markedly improved this morning Current Visit: Yes (5) Prostate cancer metastatic to intrapelvic lymph node Status: Chronic Current Visit: Yes (6) Dysphasia Status: Acute Current Visit: Yes (7) Alkaline phosphatase elevation Status: Acute Current Visit: Yes (8) Liver enzyme elevation Status: Acute Current Visit: Yes - Assessment and Plan Patient is markedly improved today. He is still confused but now more awake and able to converse. He is oriented to person but confused as to place and events. His pain is well controlled. He still has some discomfort pain in his right wrist and arm. I have advanced him to bolus feedings with water in between. Additionally we added Carafate 4 times a day through his PEG tube and converted his Protonix to PEG from IV. I will have nursing walk him 3 times a day. At this time am very encouraged Hospital Course Summary Disclaimer: The visit summary below is not to be considered part of the above Progress Note.
[2017-11-07] MEDS: MULTI VITAMIN PO SCH (10:56)
[2017-11-07] MEDS: HALOPERIDOL 5 MG/ML INJECTION IVP SCH ×2 (10:56→20:11)
[2017-11-07] MEDS: PANTOPRAZOLE 40 MG TABLET PEG SCH ×2 (10:56→17:13)
[2017-11-07] MEDS: SUCRALFATE 1gm/10ml ORAL LIQUID PEG SCH ×3 (10:57→20:12)
[2017-11-07] MEDS: ACETAMINOPHEN 160mg/5ml ORAL LIQUID PEG PRN ×2 (12:35→20:47)
--- NOTE | 2017-11-07 16:07 | Neuropsych Progress Note ---
[facility] Subjective Date: 11/07/17 - Sujective/Severity of Illness Medications: Acetaminophen (Tylenol Liquid) 1,000 mg PEG Q8H PRN Last Admin: 11/07/17 12:35 Dose: 1,000 mg Budesonide (Pulmicort Inhalation) 0.5 mg AEROSOL QID PRN PRN Reason: PRN orders Haloperidol Lactate (Haldol) 0.5 mg IVP Q4H PRN PRN Reason: Restlessness Last Admin: 11/06/17 00:46 Dose: 0.5 mg Haloperidol Lactate (Haldol) 0.5 mg IVP BID [facility] Last Admin: 11/07/17 10:56 Dose: 0.5 mg Lorazepam (Ativan Inj) 0.5 mg IVP Q4H PRN Last Admin: 11/07/17 13:17 Dose: 0.5 mg Multivitamins (Theragran Liq) 5 ml PO DAILY [facility] Last Admin: 11/07/17 10:56 Dose: 5 ml Ondansetron HCl (Zofran) 4 - 8 mg IVP Q6H PRN PRN Reason: Nausea &/or vomiting Last Admin: 11/05/17 06:54 Dose: 4 mg Pantoprazole Sodium (Protonix Tab) 40 mg PEG ACBID [facility] Last Admin: 11/07/17 10:56 Dose: 40 mg Propranolol HCl (Inderal) 20 mg PEG Q8H [facility] Last Admin: 11/07/17 12:37 Dose: 20 mg Sucralfate (Carafate Slurry) 1 gm PEG 0630,1130,1630,2030 [facility] Last Admin: 11/07/17 10:57 Dose: 1 gm Timolol Maleate (Timoptic-Xe 0.5%) 1 drops LEFT EYE HS [facility] Last Admin: 11/06/17 21:43 Dose: 1 drops Subjective: Patient seen and chart reviewed. Patient speaks minimally on interview but reports feeling okay and does not appear to be in distress. Confusion continues to vary (consistent with delirium) but improving overall, agitation significantly decreased. Family asks about chronic shoulder pain. Start Time: 09:00 Stop Time: 09:20 Mental Status Exam Vitals: Last Vital Signs Temp 98.0 F 11/07/17 15:40 Pulse 70 11/07/17 15:40 Resp 16 11/07/17 15:40 BP 116/69 11/07/17 15:40 Pulse Ox 96 11/07/17 15:40 Height: 1.75 m Weight: 65.3 kg - Mental Status Exam Muscle Strength/Tone: Weak Dressing: Other (Hospital gown) Grooming: Fair Attitude: Cooperative Motor Activity: Retardation Eye Contact: Fair Speech: Slowed Volume: Soft Rhythm: Paucity of Language Sensory: Alert Orientation: Oriented to person Mood: Other ("okay") Affect: Relaxed Rate of Thoughts: Delayed Thought Organization: Other (less confused than previously) Abstract Reasoning: Impaired, concrete Thought Content: Other (no abnormal thought content elicited ) Perception/Psychotic: Perception Normal Fund of Knowledge: Other (decreased) Memory: Poor-recent Suicidal Ideation: Denies Homicidal Ideation: Denies Insight: Impaired Judgement: Impaired Impulse Control: Fair - Laboratory Result Diagrams: 11/07/17 04:24 11/07/17 04:24 Laboratory Results - last 24 hr 11/05/17 11/07/17 11/07/17 04:51 04:24 04:24 WBC 6.8 RBC 4.39 L Hgb 12.9 L Hct 40.7 L MCV 92.7 MCH 29.4 MCHC 31.7 RDW Std Deviation 46.7 Plt Count 242 MPV 9.1 L Immature Gran % (Auto) 1.8 H Neut % (Auto) 76.9 H Lymph % (Auto) 12.2 L [place] % (Auto) 6.9 Eos % (Auto) 1.5 Baso % (Auto) 0.7 Neut # (Auto) 5.2 Lymph # (Auto) 0.8 L [place] # (Auto) 0.5 Eos # (Auto) 0.1 Baso # (Auto) 0.1 Abs Immat Gran (auto) 0.12 H Turbidity < 20 Sodium 142 Potassium 4.1 D Chloride 107 Carbon Dioxide 32 H Anion Gap 3 L BUN 13.0 Creatinine 0.5 L GFR Calculation 161 BUN/Creatinine Ratio 26 Glucose 98 Calculated Osmolality 273 Calcium 8.4 Phosphorus 5.1 H Total Bilirubin 0.40 Conjugated Bilirubin 0.00 Unconjugated Bilirubin 0.10 Icterus Index < 2 AST 113 H ALT 59 Alkaline Phosphatase 215 H Total Protein 5.8 L Albumin 2.6 L Globulin 3.2 Albumin/Globulin Ratio 0.8 L Vitamin B12 > 1000 H Specimen Hemolysis < 15 Assessment and Plan (1) Delirium due to multiple etiologies, acute, hyperactive Current visit: Yes Status: Acute R/O underlying major neurocognitive disorder (2) Prostate cancer metastatic to intrapelvic lymph node Current visit: Yes Status: Chronic (3) Protein-calorie malnutrition, severe Current visit: Yes Status: Acute 11/07/17: Delirium is improving, agitation resolved though confusion persists at times through day. This will be expected over next several days and hopefully will continue to improve. Family asks about weaning narcotics, which I am in agree with, and other options for arthritic shoulder pain. Will defer to primary team but tramadol may be an option that would be less deliriogenic. Cannot assess for underlying neurocognitive disorder in context of delirium but would suspect some underlying cognitive deficits. As delirium resolves, can taper Haldol to 0.25mg IV BID, then 0.25mg PO q HS then discontinue as patient should not need this medication long-term. Psychiatry will continue to follow. Hospital Course Summary Disclaimer: The visit summary below is not to be considered part of the above Progress Note.
--- NOTE | 2017-11-07 18:29 | Progress Note ---
DATE 11/07/2017 POSTOP DAY #5 HISTORY The patient still is having some confusion and disorientation at times throughout the day but does have some improvement in his mental status changes today. The patient has been more lucid today than he has been on previous days. The patient was seen by Dr. Sammi Gerard again today for psychiatric management. Dr. Avalos also continues to see the patient and provide medical management for the patient. Dr. Avalos did start the patient on a Carafate slurry q.i.d. via the PEG tube for treatment of the duodenal ulcer. Dr. Avalos also changed the Protonix for the patient from intravenous Protonix to Protonix b.i.d. via the PEG tube. The patient is receiving bolus tube feedings at this time. PHYSICAL EXAMINATION VITAL SIGNS: Temperature is 98 degrees Fahrenheit oral. Pulse is 70. Respiratory rate is 16. Blood pressure is 116/69. Oxygen saturation is 96% on room air. ABDOMEN: The patient continues to have dressings and a binder in place over the PEG tube at the abdomen. LABORATORY DATA White blood cell count is 6800 today. Hemoglobin is 12.9. Hematocrit is 40.7. Serum sodium is 142. Serum potassium is 4.1. Serum creatinine is 0.5. Total protein is 5.8. Serum albumin is 2.6. IMPRESSION 1. Oropharyngeal dysphagia 2. Tracheal penetration with all given consistencies demonstrated on 2016 modified barium swallow study. 3. Protein calorie malnutrition with decreased serum albumin, serum prealbumin and serum total protein. 4. Weight loss. 5. Status post esophagogastroduodenoscopy with placement of percutaneous endoscopic gastrostomy tube on 11/02/2017. 6. Duodenal ulcer. 7. Recent active upper gastrointestinal tract bleeding from duodenal ulcer. 8. Mental status changes including recent restlessness, agitation, confusion and disorientation. This is thought by Dr. Sammi Gerard to be mental status changes due to delirium due to multiple etiologies. 9. Resolution of hypernatremia. 10. Resolution of hyperkalemia. 11. Personal history of metastatic prostate cancer. PLAN 1. Continue sequential compression devices for deep venous thrombosis prophylaxis. 2. Continue tube feedings with FiberSource HN via the percutaneous endoscopic gastrostomy tube. The patient is receiving bolus tube feedings at this time. 3. Protonix and Carafate via the PEG tube for treatment of the duodenal ulcer. 4. Continue medical management by Dr. Avalos. 5. Continue psychiatric management by Dr. Sammi Gerard. 6. We continue to work on plans for disposition of the patient following this acute care hospitalization. The course of the disposition of the patient following the acute care hospitalization will depend on whether the patient continues to have improvement in the mental status changes with improvement in confusion and disorientation. The patient currently is having enough confusion and disorientation that he is requiring one-to-one care with a sitter present in the room 24 hours [id number] to keep the patient from pulling out his percutaneous endoscopic gastrostomy tube. DESHAUN
[2017-11-08] MEDS: HALOPERIDOL 5 MG/ML INJECTION IVP PRN (01:34)
[2017-11-08] MEDS: PROPRANOLOL 20 MG/5 ML PEG SCH ×3 (05:28→20:04)
[2017-11-08] MEDS: PANTOPRAZOLE 40 MG TABLET PEG SCH ×2 (05:30→17:21)
[2017-11-08] MEDS: SUCRALFATE 1gm/10ml ORAL LIQUID PEG SCH ×4 (05:30→20:04)
[2017-11-08] MEDS: HALOPERIDOL 5 MG/ML INJECTION IVP SCH ×2 (08:44→20:04)
[2017-11-08] MEDS: MULTI VITAMIN PO SCH (08:44)
[2017-11-08] MEDS ORDERED: MODAFINIL 100 MG TABLET PEG SCH (09:30)
[2017-11-08] MEDS: GABAPENTIN 250 MG/5 ML PEG SCH ×3 (11:47→20:45)
[2017-11-08] MEDS: SALINE FLUSH 10ml SYRINGE IV PRN ×3 (16:12→22:30)
--- NOTE | 2017-11-08 17:18 | Progress Note ---
DATE 11/08/2017 POSTOP DAY #[address] Avalos did discontinue the intravenous morphine yesterday and start the patient on Tylenol through the PEG tube for pain control. The patient has been using the Tylenol through the PEG tube. The patient did have a rough night last night. The patient did not appear to get any sleep at all last night. The patient is confused today. The patient does continue to require one-to-one care with a sitter present in the room 24 hours [id number] to keep the patient from pulling out his gastrostomy tube due to his confusion. The patient does continue to receive tube feedings through the PEG tube. The tube feedings are being increased. The patient is receiving bolus feedings. Dr. Avalos did start the patient on some gabapentin oral liquid 100 mg t.i.d. through the PEG tube today. The patient was able to do some ambulating in the halls today with help from Physical Therapy. PHYSICAL EXAMINATION VITAL SIGNS: Temperature is 97.4 degrees Fahrenheit axillary. Pulse is 69. Respiratory rate is 16. Blood pressure is 142/77. Oxygen saturation is 94% on room air. ABDOMEN: I did examine the PEG tube site today with the binder opened and all the dressings removed. The PEG tube site is looking good. The abdomen is not distended. IMPRESSION 1. Oropharyngeal dysphagia. 2. Tracheal penetration with all given consistencies demonstrated on 2016 modified barium swallow study. 3. Protein calorie malnutrition with decreased serum albumin, serum prealbumin and serum total protein. 4. Weight loss. 5. Status post esophagogastroduodenoscopy with placement of percutaneous endoscopic gastrostomy tube on 11/02/2017. 6. Duodenal ulcer. 7. Recent active upper gastrointestinal tract bleeding from duodenal ulcer. 8. Mental status changes including recent restlessness, agitation, confusion and disorientation. 9. Personal history of metastatic prostate cancer. PLAN 1. Continue sequential compression devices for deep venous thrombosis prophylaxis. 2. Continue tube feedings with FiberSource HN via the percutaneous endoscopic gastrostomy tube. The patient is receiving bolus feedings at this time. 3. Protonix and Carafate via the PEG tube for treatment of the duodenal ulcer. 4. Continue medical management by Dr. Avalos. 5. Continue psychiatric management and treatment of mental status changes by Dr. Sammi Gerard. 6. We continue to work on plans for disposition of the patient following this acute care hospitalization. The course of the disposition of the patient following the acute care hospitalization will depend on whether the patient is able to have improvement in his mental status changes and improvement in his confusion and disorientation. The patient continues to have enough confusion and disorientation at this time that he is requiring one-to-one care with a sitter present in the room 24 hours [id number] to keep the patient from pulling out his percutaneous endoscopic gastrostomy tube. 7. The patient continues to receive the Haldol 0.5 mg intravenously b.i.d. and the Ativan 0.5 mg intravenously every four hours p.r.n. as ordered by Dr. Sammi Gerard for treatment of mental status changes. MTDD
--- NOTE | 2017-11-08 17:51 | Internal Med Progress Note ---
Internal Medicine Subjective Patient seen and examined in his room. and son at the bedside. Questions answered. Roger appears much improved this evening. Discussed his case with nursing at length. He seems to have done well with the addition of gabapentin. He was able to walk with assistance with physical therapy down to the nurses station earlier today and back to his room. This is a big advance. He is had no bowel movement yet but he is passing gas and is in much less distress. Exam Vital Signs: Temperature 97.1 F 11/08/17 16:00 Pulse Rate 85 11/08/17 16:00 Respiratory Rate 18 11/08/17 16:00 Blood Pressure 117/71 11/08/17 16:00 Pulse Oximetry 97 11/08/17 16:00 Telemetry Rhythm: Sinus Rhythm Height/Weight/BMI: Height 5 ft 9 in Weight 65 kg Body Mass Index 21.1 - Constitutional Present: no acute distress, cachectic, cooperative - Routine HEENT Exam Head: Present: normocephalic, atraumatic Eye: Present: EOMI, PERRL. Absent: conjunctival icterus, scleral injection, conjunctivae pink ENT: Present: mucous membranes moist - Routine Neck Exam Present: supple. Absent: lymphadenopathy, thyromegaly - Routine Respiratory Exam Present: CTA bilaterally. Absent: accessory muscle use, rales, rhonchi, crackles - Routine Cardiovascular Exam Present: RRR. Absent: S3, S4 - Routine Abdominal Exam Present: soft, normoactive bowel sounds, non distended. Absent: rebound, guarding, rigid - Routine Extremities Exam Absent: cyanosis, clubbing, edema - Routine Skin Exam Present: intact. Absent: cyanosis, erythema, mottling, petechiae, urticaria, jaundice - Routine Neurological Exam Present: alert, CN II-XII intact, moving all extremities. Absent: oriented X3 - Routine Psychiatric Exam Present: cooperative. Absent: normal affect, good insight, good judgment, agitated Internal Medicine Results - Labs CBC & Chem 7: 11/07/17 04:24 11/07/17 04:24 Progress Note-A&P - Time Spent With Patient Total time spent is greater than 50% in coordination of care (as documented) at patient's floor/unit and/or counseling patient: greater than 35 minutes (Roger looks much improved today. He is oriented to person but not place and events. His pain appears well controlled) (1) Dysphagia Status: Acute Current Visit: Yes (2) Protein-calorie malnutrition, severe Status: Acute Assessment and plan: Patient stated feedings were advanced to bolus feedings. Current Visit: Yes (3) Excessive weight loss Status: Acute Current Visit: Yes (4) Mental status change Status: Acute Assessment and plan: Patient is markedly improved this morning Current Visit: Yes (5) Prostate cancer metastatic to intrapelvic lymph node Status: Chronic Current Visit: Yes (6) Dysphasia Status: Acute Current Visit: Yes (7) Alkaline phosphatase elevation Status: Acute Current Visit: Yes (8) Liver enzyme elevation Status: Acute Current Visit: Yes - Assessment and Plan Roger looks much improved today. He is oriented to person but not place and events. His pain appears well controlled. He is tolerating the addition of gabapentin well. He walked today and he is passing flatus. Hospital Course Summary Disclaimer: The visit summary below is not to be considered part of the above Progress Note.
[2017-11-08] MEDS: POLYETHYL GLYCOL 3350 17gm PACKET PO PRN (21:38)
[2017-11-09] MEDS: HALOPERIDOL 5 MG/ML INJECTION IVP PRN (00:41)
[2017-11-09] MEDS: PROPRANOLOL 20 MG/5 ML PEG SCH ×3 (05:36→23:06)
[2017-11-09] MEDS: SUCRALFATE 1gm/10ml ORAL LIQUID PEG SCH ×4 (05:36→23:04)
[2017-11-09] MEDS: PANTOPRAZOLE 40 MG TABLET PEG SCH ×2 (05:36→18:02)
[2017-11-09] MEDS: HALOPERIDOL 5 MG/ML INJECTION IVP SCH ×2 (08:18→23:06)
[2017-11-09] MEDS: GABAPENTIN 250 MG/5 ML PEG SCH ×3 (08:19→23:04)
[2017-11-09] MEDS: MULTI VITAMIN PO SCH (08:19)
[2017-11-09] MEDS: SALINE FLUSH 10ml SYRINGE IV PRN ×2 (12:38→18:02)
--- NOTE | 2017-11-09 18:34 | Internal Med Progress Note ---
Internal Medicine Subjective Patient seen and examined in his room. at the bedside. Questions answered. Roger was able to answer correctly his name this morning and where he was being the hospital. He has had more confusion as the day has gone on according to nursing staff. He has been assisted to the bathroom several times by the staff and then seemingly wakes up and wants to go back to his bed. He said my name correctly tonight and open his eyes for a brief period and then closed him again. He still has significant delirium but appears to be slowly improving. He has tolerated his tube feedings very well Exam Vital Signs: Temperature 98.0 F 11/09/17 00:00 Pulse Rate 84 11/09/17 12:37 Respiratory Rate 24 11/09/17 08:00 Blood Pressure 124/68 11/09/17 12:37 Pulse Oximetry 92 11/09/17 00:00 Height/Weight/BMI: Height 5 ft 9 in Weight 66.6 kg Body Mass Index 21.1 - Constitutional Present: no acute distress, cooperative, somnolent - Routine HEENT Exam Head: Present: normocephalic, atraumatic Eye: Present: EOMI, PERRL, conjunctivae pink. Absent: conjunctival icterus, scleral injection ENT: Present: mucous membranes moist, oropharynx clear, nares patent - Routine Neck Exam Present: supple. Absent: lymphadenopathy, thyromegaly - Routine Respiratory Exam Present: CTA bilaterally. Absent: accessory muscle use, rales, rhonchi, wheezes - Routine Cardiovascular Exam Present: irregular rhythm. Absent: S3, S4 - Routine Abdominal Exam Present: soft, normoactive bowel sounds, non distended, non tender - Routine Extremities Exam Absent: cyanosis, clubbing, edema - Routine Skin Exam Present: dry, warm. Absent: mottling, petechiae, jaundice - Routine Neurological Exam Absent: alert, oriented X3 (oriented 2) - Routine Psychiatric Exam Present: cooperative. Absent: normal affect, good insight, good judgment, depressed, anxious Internal Medicine Results - Labs CBC & Chem 7: 11/07/17 04:24 11/09/17 04:16 Labs: BMP 11/09/17 04:16 Sodium 140 Potassium 3.6 Chloride 106 Carbon Dioxide 28 BUN 15.0 Creatinine 0.5 L Glucose 91 Calcium 8.3 L Liver Function 11/09/17 Range/Units 04:16 Total Bilirubin 0.40 (0.20-1.30) MG/DL AST 114 H (17-59) U/L ALT 55 (21-72) U/L Alkaline Phosphatase 236 H (38-126) U/L Albumin 2.9 L (3.5-5.0) G/DL Progress Note-A&P - Time Spent With Patient Total time spent is greater than 50% in coordination of care (as documented) at patient's floor/unit and/or counseling patient: 25 - 35 minutes (1) Dysphagia Status: Acute Current Visit: Yes (2) Protein-calorie malnutrition, severe Status: Acute Assessment and plan: Patient stated feedings were advanced to bolus feedings. Current Visit: Yes (3) Excessive weight loss Status: Acute Current Visit: Yes (4) Mental status change Status: Acute Assessment and plan: Patient is markedly improved this morning Current Visit: Yes (5) Prostate cancer metastatic to intrapelvic lymph node Status: Chronic Current Visit: Yes (6) Dysphasia Status: Acute Current Visit: Yes (7) Alkaline phosphatase elevation Status: Acute Current Visit: Yes (8) Liver enzyme elevation Status: Acute Current Visit: Yes - Assessment and Plan We have been steadily increasing his tube feedings and he seems to be tolerating it well. He is still having delirium. Neuropsych is following along. Hospital Course Summary Disclaimer: The visit summary below is not to be considered part of the above Progress Note.
[2017-11-09] MEDS: POLYETHYL GLYCOL 3350 17gm PACKET PO PRN (19:44)
[2017-11-09] MEDS: ONDANSETRON 4 MG/2 ML INJECTION IVP PRN (21:05)
[2017-11-10] MEDS ORDERED: BISACODYL 10 MG SUPPOSITORY RECTALLY PRN (04:46)
[2017-11-10] MEDS: PANTOPRAZOLE 40 MG TABLET PEG SCH ×2 (05:29→17:26)
[2017-11-10] MEDS: SUCRALFATE 1gm/10ml ORAL LIQUID PEG SCH ×4 (05:30→20:35)
[2017-11-10] MEDS: PROPRANOLOL 20 MG/5 ML PEG SCH ×3 (05:30→20:35)
[2017-11-10] MEDS ORDERED: POLYETHYL GLYCOL 3350 17gm PACKET PEG PRN (06:30)
[2017-11-10] MEDS: HALOPERIDOL 5 MG/ML INJECTION IVP SCH ×2 (09:18→21:32)
[2017-11-10] MEDS: GABAPENTIN 250 MG/5 ML PEG SCH ×3 (09:22→23:10)
[2017-11-10] MEDS: MULTI VITAMIN PEG SCH (09:23)
--- NOTE | 2017-11-10 09:39 | Progress Note ---
DATE 11/09/2017 POSTOP DAY #7 HISTORY The patient did sleep a little bit better last night than he did the night before last. The patient continues to be confused. The patient does continue to require one-to-one care with a sitter present in the room 24 hours around-the -clock to keep the patient from pulling out his percutaneous endoscopic gastrostomy tube due to the confusion. The patient continues to receive bolus tube feedings through the PEG tube. The tube feedings have been changed from FiberSource HN to Nutren Pulmonary complete liquid nutrition. The patient continues to pass flatus every day. The nurses report that the patient has not had a bowel movement since his operation. He has been receiving laxatives. The patient has not been seen by Dr. Gerard yesterday or today. PHYSICAL EXAMINATION VITAL SIGNS: Temperature is 98 degrees Fahrenheit oral. Pulse is 84. Blood pressure is 124/68. Oxygen saturation is 92% on room air. ABDOMEN: Dressings and binder are left in place at the abdomen today. Nurses report that the PEG tube site continues to have a satisfactory appearance. LABORATORY DATA Serum sodium is 140 today. Serum potassium is 3.6. Serum creatinine is 0.5. Alkaline phosphatase is 236. AST is 114. ALT is 55. Serum albumin is 2.9. Serum prealbumin is 14.2. IMPRESSION 1. Oropharyngeal dysphagia 2. Tracheal penetration with all given consistencies demonstrated on 2016 modified barium swallow study. 3. Protein calorie malnutrition with decreased serum albumin, serum prealbumin and serum total protein. 4. Weight loss. 5. Status post esophagogastroduodenoscopy with placement of percutaneous endoscopic gastrostomy tube on 11/02/2017. 6. Duodenal ulcer. 7. Recent active upper gastrointestinal tract bleeding from duodenal ulcer. 8. Mental status changes including recent restlessness, agitation, confusion and disorientation. 9. Personal history of metastatic prostate cancer. PLAN 1. Continue sequential compression devices for deep venous thrombosis prophylaxis. 2. Continue tube feedings with Nutren Pulmonary complete liquid nutrition via the percutaneous endoscopic gastrostomy tube. The patient is receiving bolus feedings. 3. Continue Carafate and Protonix via the PEG tube for treatment of the duodenal ulcer. 4. Continue medical management by Dr. Avalos. 5. Continue psychiatric management and treatment of mental status changes by Dr. Sammi Gerard or whoever is on-call for her. 6. Continue to work on plans for disposition of the patient following this acute care hospitalization. The course of the disposition of the patient following the acute care hospitalization continues to depend on whether or not the patient will have any improvement in his mental status changes and improvement in his confusion and disorientation. The patient continues to have enough confusion and disorientation at this time that he is requiring one-to- one care with a sitter present in the room 24 hours [id number] to keep the patient from pulling out his percutaneous endoscopic gastrostomy tube. DESHAUN
[2017-11-10] MEDS: ACETAMINOPHEN 500 MG TABLET PEG PRN ×2 (10:04→23:58)
--- NOTE | 2017-11-10 13:15 | Progress Note ---
DATE 11/10/2017 POSTOP DAY #8 HISTORY The patient continues to tolerate his tube feedings well. The patient has had a bowel movement within the past 24 hours. The patient continues to experience delirium. He continues to have mental status changes including confusion and disorientation. The patient continues to require one-to-one care with a sitter present in the room 24 hours around-the -clock to keep the patient from pulling out his percutaneous endoscopic gastrostomy tube. The patient does have difficulty sleeping at night. He is sometimes a little more oriented and sometimes a little less oriented but is confused and disoriented quite a bit of the time. The patient was seen by Dr. Bloom this morning. Dr. Bloom is on-call this weekend for Dr. Sammi Gerard. PHYSICAL EXAMINATION VITAL SIGNS: Temperature is 97.6 degrees Fahrenheit oral. Pulse is 55. Respiratory rate is 18. Blood pressure is 91/62. Oxygen saturation is 92% on room air. ABDOMEN: Dressings and binder are left in place over the percutaneous endoscopic gastrostomy tube at this time. IMPRESSION 1. Oropharyngeal dysphagia. 2. Protein calorie malnutrition with decreased serum albumin, serum prealbumin and serum total protein. 3. Weight loss. 4. Status post esophagogastroduodenoscopy with placement of percutaneous endoscopic gastrostomy tube on 11/02/2017. 5. Duodenal ulcer. 6. Recent active upper gastrointestinal tract bleeding from duodenal ulcer. 7. Delirium due to multiple etiologies. Mental status changes including recent restlessness, agitation, confusion and disorientation secondary to the delirium. 8. Personal history of metastatic prostate cancer. PLAN 1. Continue sequential compression devices for deep venous thrombosis prophylaxis. 2. Continue tube feedings with Nutren Pulmonary complete liquid nutrition via the percutaneous endoscopic gastrostomy tube. 3. Continue the Protonix and Carafate via the PEG tube for treatment of duodenal ulcer. 4. Continue medical management by Dr. Avalos. 5. Continue neuropsychiatric management of the patient by Dr. Sammi Gerard. 5. Continue to work on plans for disposition of the patient following this acute care hospitalization. The course of the disposition of the patient following this acute care hospitalization will depend on how much he recovers from the delirium with confusion and disorientation which he is experiencing at this time. The patient continues to have enough confusion and disorientation at this time that he is requiring one-to-one care with a sitter present in the room 24 hours [id number] to keep the patient from pulling out his percutaneous endoscopic gastrostomy tube. DESHAUN
--- NOTE | 2017-11-10 14:57 | Progress Note ---
- Date 11/10/17 Subjective: Mr. Domingo was resting comfortably when visited this morning. Staff reported he seemed a little more lucid today and had not been tugging at the abdominal binder or combative with staff today. He remains confused and requires 2 person assist when he is up to the bathroom but seemed a little steadier today than yesterday. He has a coarse sounding cough intermittently but has not required supplemental oxygen. Bowel movement earlier today. Objective Vital signs: Temperature 97.6 F 11/10/17 07:00 Pulse Rate 55 L 11/10/17 07:00 Respiratory Rate 18 11/10/17 07:00 Blood Pressure 91/62 11/10/17 07:00 Pulse Oximetry 92 - RA 11/10/17 07:00 Resting comfortably, opens eyes but did not speak Respirations nonlabored, breath sounds slightly coarse anteriorly Regular rhythm, S1-S2 Abdomen soft, nontender, active bowel sounds Extremities without edema Height/Weight/BMI: Height 1.75 m Weight 66.6 kg Body Mass Index 21.1 Results - Labs CBC & Chem 7: 11/07/17 04:24 11/09/17 04:16 Labs: AST 114-comparable to recent days, ALT 55, alkaline phosphatase 236 Prealbumin 14.2, albumin 2.9 Microbiology Results: Microbiology 11/02/17 08:37 Gastric Biopsy Helicobacter pylori Rapid Urease - Final Assessment and Plan (1) Protein-calorie malnutrition, moderate Current visit: Yes Status: Acute (2) Dysphagia Problem details: Oropharyngeal Current visit: Yes Status: Acute (3) Excessive weight loss Current visit: Yes Status: Acute Assessment and Plan: Impression Oropharyngeal dysphasia Protein calorie malnutrition, moderate Weight loss duodenal ulcer with recent GI bleed Delirium Metastatic prostate cancer Abnormal liver enzymes Plan Tolerating tube feedings, has not been manipulating G-tube today or as irritable /aggressive as prior days. Continue supportive care. Head CT with contrast negative for intracranial metastatic disease; unable to obtain MRI as patient cannot remain still for duration of study per nursing report. - Physician Narrative Narrative: Date: 11/10/17 Time: 1451 Hospital Course Summary Disclaimer: The visit summary below is not to be considered part of the above Progress Note.
--- NOTE | 2017-11-10 17:32 | Neuropsych Progress Note ---
[facility] Subjective Date: 11/10/17 - Sujective/Severity of Illness Medications: Acetaminophen (Tylenol) 1,000 mg PEG Q8HR PRN PRN Reason: Discomfort Last Admin: 11/10/17 10:04 Dose: 1,000 mg Bisacodyl (Dulcolax) 10 mg RECTALLY DAILY PRN PRN Reason: Constipation Last Admin: 11/10/17 04:49 Dose: 10 mg Budesonide (Pulmicort Inhalation) 0.5 mg AEROSOL QID PRN PRN Reason: PRN orders Gabapentin (Neurontin Liquid) 100 mg PEG TID [facility] Last Admin: 11/10/17 17:26 Dose: 100 mg Haloperidol Lactate (Haldol) 0.5 mg IVP Q4H PRN PRN Reason: Restlessness Last Admin: 11/09/17 00:41 Dose: 0.5 mg Haloperidol Lactate (Haldol) 0.5 mg IVP BID [facility] Last Admin: 11/10/17 09:18 Dose: 0.5 mg Lorazepam (Ativan Inj) 0.5 mg IVP Q4H PRN Last Admin: 11/08/17 22:29 Dose: 0.5 mg Magnesium Hydroxide (Mom) 30 ml PEG DAILY PRN PRN Reason: Constipation /Stool softening Last Admin: 11/09/17 14:21 Dose: 30 ml Multivitamins (Theragran Liq) 5 ml PEG DAILY [facility] Last Admin: 11/10/17 09:23 Dose: 5 ml Ondansetron HCl (Zofran) 4 - 8 mg IVP Q6H PRN PRN Reason: Nausea &/or vomiting Last Admin: 11/09/17 21:05 Dose: 4 mg Pantoprazole Sodium (Protonix Tab) 40 mg PEG ACBID [facility] Last Admin: 11/10/17 17:26 Dose: 40 mg Polyethylene Glycol (Miralax) 17 gm PEG DAILY PRN Last Admin: 11/10/17 09:22 Dose: 17 gm Propranolol HCl (Inderal) 20 mg PEG Q8H [facility] Last Admin: 11/10/17 12:29 Dose: 20 mg Sodium Chloride (Iv Flush) 10 - 80 ml IV PRN PRN PRN Reason: Flushing Last Admin: 11/09/17 18:02 Dose: 50 ml Sucralfate (Carafate Slurry) 1 gm PEG 0630,1130,1630,2030 [facility] Last Admin: 11/10/17 16:58 Dose: 1 gm Timolol Maleate (Timoptic-Xe 0.5%) 1 drops LEFT EYE HS [facility] Last Admin: 11/09/17 23:06 Dose: 1 drops Subjective: Patient seen and chart reviewed. Nursing reports pt has been confused and had some issues with sleep last night but has not been aggressive. On face to face the pt is resting quietly. Family states he remains confused but they have not noted any aggression. Tolerating meds Start Time: 10:00 Stop Time: 10:15 Mental Status Exam Vitals: Last Vital Signs Temp 97.2 F 11/10/17 15:00 Pulse 67 11/10/17 15:00 Resp 16 11/10/17 15:00 BP 95/59 11/10/17 15:00 Pulse Ox 93 11/10/17 15:00 Height: 1.75 m Weight: 66.7 kg - Mental Status Exam Muscle Strength/Tone: Weak Dressing: Other (Hospital gown) Grooming: Fair Attitude: Cooperative Motor Activity: Retardation Eye Contact: Fair Speech: Slowed Volume: Soft Rhythm: Paucity of Language Orientation: Oriented to person Mood: Other ("okay") Rate of Thoughts: Delayed Thought Organization: Other (less confused than previously) Abstract Reasoning: Impaired, concrete Thought Content: Other (no abnormal thought content elicited ) Perception/Psychotic: Perception Normal Language: Naming Impaired Fund of Knowledge: Other (decreased) Memory: Poor-recent Suicidal Ideation: Denies Homicidal Ideation: Denies Insight: Impaired Judgement: Impaired Impulse Control: Fair - Laboratory Result Diagrams: 11/07/17 04:24 11/09/17 04:16 Assessment and Plan (1) Prostate cancer metastatic to intrapelvic lymph node Current visit: Yes Status: Chronic (2) Protein-calorie malnutrition, severe Current visit: Yes Status: Acute (3) Delirium due to multiple etiologies, acute, hyperactive Current visit: Yes Status: Acute Hospital Course Summary Disclaimer: The visit summary below is not to be considered part of the above Progress Note. Hospital Course: 11/10/17 17:31 PT remains confused but reportedly no behaviors noted. Recommend continuing Haldol
[2017-11-10] MEDS: ONDANSETRON 4 MG/2 ML INJECTION IVP PRN (18:24)
[2017-11-11] MEDS: HALOPERIDOL 5 MG/ML INJECTION IVP PRN (03:55)
[2017-11-11] MEDS: PROPRANOLOL 20 MG/5 ML PEG SCH ×3 (05:57→20:35)
[2017-11-11] MEDS: PANTOPRAZOLE 40 MG TABLET PEG SCH ×2 (05:57→16:59)
[2017-11-11] MEDS: SUCRALFATE 1gm/10ml ORAL LIQUID PEG SCH ×4 (05:57→20:35)
[2017-11-11] MEDS: MULTI VITAMIN PEG SCH (08:15)
[2017-11-11] MEDS: GABAPENTIN 250 MG/5 ML PEG SCH ×3 (08:15→22:07)
[2017-11-11] MEDS: HALOPERIDOL 5 MG/ML INJECTION IVP SCH ×2 (08:15→20:35)
[2017-11-11] MEDS: ONDANSETRON 4 MG/2 ML INJECTION IVP PRN (09:23)
[2017-11-11] MEDS: ACETAMINOPHEN 500 MG TABLET PEG PRN ×2 (10:12→22:28)
--- NOTE | 2017-11-11 15:59 | Progress Note ---
- Date 11/11/17 Subjective: Mr. Domingo was awake and calm when seen this morning. Staff reported he complained of some nausea earlier in the day and if achiness in his hips and shoulders. The patient denied dyspnea and heartburn when I spoke with him. He has not been pulling at the G-tube and no significant agitation was described overnight. Objective Vital signs: Temperature 97.4 F 11/11/17 15:47 Pulse Rate 77 11/11/17 15:47 Respiratory Rate 16 11/11/17 15:47 Blood Pressure 116/69 11/11/17 15:47 Pulse Oximetry 91 11/11/17 15:47 NAD, drowsy, calm Respirations nonlabored, fair airflow, anterior breath sounds clear Regular rhythm, S1-S2 Abdomen soft, nontender, bowel sounds present Extremities without edema Height/Weight/BMI: Height 1.75 m Weight 67.7 kg Body Mass Index 21.1 Results - Labs CBC & Chem 7: 11/11/17 04:01 11/11/17 04:01 Labs: Phosphorus 3.6, albumin 2.8 Microbiology Results: Microbiology 11/02/17 08:37 Gastric Biopsy Helicobacter pylori Rapid Urease - Final Assessment and Plan (1) Protein-calorie malnutrition, moderate Current visit: Yes Status: Acute (2) Dysphagia Problem details: Oropharyngeal Current visit: Yes Status: Acute (3) Excessive weight loss Current visit: Yes Status: Acute Assessment and Plan: Impression Oropharyngeal dysphasia Protein calorie malnutrition, moderate Weight loss duodenal ulcer with recent GI bleed Delirium Metastatic prostate cancer Abnormal liver enzymes Plan Seen for Dr. Avalos who will resume care tomorrow. Tolerating tube feedings, has not been manipulating G-tube today or as irritable /aggressive as prior days. Switched to Pulmocare yesterday per dietary recommendations. Increase tube feedings to 5 cans Pulmocare daily; one can every 4 hours between 6 AM and 10 PM. Sodium stable with current volume water flushes. Continue supportive care. Continue low-dose scheduled haloperidol. Head CT with contrast negative for intracranial metastatic disease. Discussed with nursing. DVT Prophylaxis: SCD's Resuscitation Status: Full Code - Physician Narrative Narrative: Date: 11/11/17 Time: 1556 Hospital Course Summary Disclaimer: The visit summary below is not to be considered part of the above Progress Note. Hospital Course: 11/10/17 17:31 PT remains confused but reportedly no behaviors noted. Recommend continuing Haldol
[2017-11-12] MEDS: PROPRANOLOL 20 MG/5 ML PEG SCH ×3 (05:37→21:04)
[2017-11-12] MEDS: PANTOPRAZOLE 40 MG TABLET PEG SCH ×2 (05:37→16:41)
[2017-11-12] MEDS: SUCRALFATE 1gm/10ml ORAL LIQUID PEG SCH ×4 (05:37→21:04)
--- NOTE | 2017-11-12 08:15 | Progress Note ---
DATE 11/11/2017 POSTOP DAY #9 HISTORY The patient was seen yesterday by Dr. Adriana Bloom who was providing call coverage for Dr. Sammi Gerard. Dr. Bloom recommended continuing Haldol at the current dosage. The patient was seen by Dr. Bloom again today. The patient was seen yesterday by Dr. Ludivina Marcelo from the hospitalist service who was providing call coverage for Dr. Avalos yesterday. The patient continues to tolerate his tube feedings well. He is not having any problem with the tube feedings. The mental status with confusion and disorientation has improved a little bit each day for the patient for the last several days. He has some periods where he is less confused and disoriented. He then has other times where he is more confused and disoriented. The nurses who are taking care of the patient report that there are still times when he will reach down and start to undo his binder and his dressings over the percutaneous gastrostomy tube and there are still times when the patient is confused enough to reach down and pull out his own percutaneous endoscopic gastrostomy tube if there is not a sitter present with him to prevent him from doing this. He continues to have some times during the day and during the night when he has this degree of confusion and disorientation. He has still not made enough progress with his mental status that he can be left alone without a sitter without risk of him pulling out his percutaneous endoscopic gastrostomy tube. PHYSICAL EXAMINATION VITAL SIGNS: Temperature is 98.5 degrees Fahrenheit oral. Pulse is 81. Respiratory rate is 16. Blood pressure is 94/53. Oxygen saturation is 90% on room air. ABDOMEN: The dressings and binder are left in place over the percutaneous endoscopic gastrostomy tube site at this time. The nurses report that the percutaneous endoscopic gastrostomy tube site has a satisfactory appearance. LABORATORY DATA White blood cell count is 5,900. Hemoglobin is 11.8. Hematocrit is 37.3. Serum sodium is 140. Serum potassium is 4. Serum creatinine is 0.6. Serum albumin is 2.8. IMPRESSION 1. Oropharyngeal dysphagia. 2. Protein calorie malnutrition with decreased serum albumin, serum prealbumin and serum total protein. 3. Weight loss. 4. Status post esophagogastroduodenoscopy with placement of percutaneous endoscopic gastrostomy tube on 11/02/2017. 5. Duodenal ulcer. 6. Recent active upper gastrointestinal tract bleeding from duodenal ulcer. 7. Delirium due to multiple etiologies. This appears to be gradually steadily improving a little bit each day. There is still enough confusion and disorientation that the patient is at risk for pulling out his own percutaneous endoscopic gastrostomy tube unless there is a sitter with him to prevent him from doing this. 8. Personal history of metastatic prostate cancer. PLAN 1. Continue sequential compression devices for deep venous thrombosis prophylaxis. 2. Continue tube feedings with Nutren Pulmonary Complete Liquid Nutrition via the percutaneous endoscopic gastrostomy tube. 3. Continue Protonix and Carafate via the PEG tube for treatment of duodenal ulcer. 4. Continue medical management by Dr. Avalos. Dr. Ludivina Marcelo is providing coverage for Dr. Avalos over the weekend. 5. Continue neuropsychiatric management of the patient by Dr. Sammi Gerard. Dr. Adriana Bloom is providing coverage for Dr. Gerard over the weekend. 6. Continue to work on plans for disposition of the patient following this acute care hospitalization. The patient is still confused and disoriented enough at times that he is at risk for pulling out his own percutaneous endoscopic gastrostomy tube. The patient continues to have enough confusion and disorientation at some times during the day and night that he requires one- to-one care with a sitter present in the room with him to keep him from pulling out his percutaneous endoscopic gastrostomy tube. DESHAUN
[2017-11-12] MEDS: HALOPERIDOL 5 MG/ML INJECTION IVP SCH ×2 (08:16→21:05)
[2017-11-12] MEDS: MULTI VITAMIN PEG SCH (08:19)
[2017-11-12] MEDS: GABAPENTIN 250 MG/5 ML PEG SCH ×3 (08:19→23:11)
[2017-11-12 09:05] VITALS: BMI 22.0
[2017-11-12] MEDS: HALOPERIDOL 5 MG/ML INJECTION IVP PRN (14:18)
--- NOTE | 2017-11-12 18:10 | Progress Note ---
DATE 11/12/2017 POSTOP DAY #10 HISTORY The nurses report that the patient got almost no sleep at all last night. The nurse who provided care for the patient last night has documented that the patient became agitated during the night and was shaking the bed rails and hitting and yelling at the nursing staff. The patient refused to use a bedside commode to go to the bathroom and was incontinent multiple times throughout the manager night and became increasingly agitated when staff attempted to change him. The patient has been very restless throughout the day today and has to be redirected by nurses. The patient did have incontinence of strong foul- smelling urine during shift change. A urine specimen was obtained for urinalysis and the urinalysis was unremarkable. The patient continued to be quite restless. The patient continued to make statements such as "I am so scared." The patient tries to get out of bed to "go home and check on his truck " so that he can "go up [place]" because he "doesn't want to here." The patient has been quite confused throughout the day. He has continued to require one-to-one care from nursing staff because of all this confusion. The patient continues to require one-to-one care to keep him from pulling out his percutaneous endoscopic gastrostomy tube. He has not made enough progress with his mental status changes yet that he could be left alone without a sitter without risk of him pulling out his percutaneous endoscopic gastrostomy tube. PHYSICAL EXAMINATION VITAL SIGNS: Temperature is 97.5 degrees Fahrenheit axillary. Pulse is 75. Respiratory rate is 20. Blood pressure is 114/66. Oxygen saturation is 94% on room air. ABDOMEN: The binder and dressings are left in place over the percutaneous endoscopic gastrostomy tube site at this time. LABORATORY DATA The patient did have a urinalysis performed today which appeared normal. IMPRESSION 1. Oropharyngeal dysphagia. 2. Protein calorie malnutrition with decreased serum albumin, serum prealbumin and serum total protein. 3. Weight loss. 4. Status post esophagogastroduodenoscopy with placement of percutaneous endoscopic gastrostomy tube on 11/02/2017. 5. Duodenal ulcer. 6. Recent active upper gastrointestinal tract bleeding from duodenal ulcer. 7. Delirium due to multiple etiologies with confusion, disorientation and agitation and restlessness. There is still enough confusion and disorientation that the patient is at risk for pulling out his percutaneous endoscopic gastrostomy tube unless there is a sitter in the room with him providing one-to- one care to prevent him from doing this. 8. Personal history of metastatic prostate cancer. PLAN 1. Continue tube feedings with Nutren Pulmonary complete liquid nutrition via the percutaneous endoscopic gastrostomy tube. 2. Continue Protonix and Carafate via the percutaneous endoscopic gastrostomy tube for treatment of duodenal ulcer. 3. Continue medical management by Dr. Avalos. 4. Continue neuropsychiatric management by Dr. Sammi Gerard. 5. Continue to work on plans for disposition of the patient following this acute care hospitalization. The patient is still confused and disoriented and restless and agitated enough at sometimes during the day that he is at risk for pulling out his percutaneous endoscopic gastrostomy tube. The patient continues to require one-to-one care with a sitter present in the room to keep him from pulling out his percutaneous endoscopic gastrostomy tube. MTDD
--- NOTE | 2017-11-12 18:43 | Internal Med Progress Note ---
Internal Medicine Subjective Patient seen and examined in his room. at the bedside. Questions answered. Chart, labs, notes reviewed from this weekend and appreciated. Family was at the bedside indicates that he has been conversing much better today. He did work with physical therapy today. I am very encouraged that when I'm seeing at this point. His delirium appears to be improving nicely. If he continues along this path I think that he would be a good candidate for inpatient rehabilitation. He has not been combative and he has been cooperative with physical therapy. Exam Vital Signs: Temperature 97.6 F 11/12/17 15:00 Pulse Rate 71 11/12/17 15:00 Respiratory Rate 16 11/12/17 15:00 Blood Pressure 135/68 11/12/17 15:00 Pulse Oximetry 94 11/12/17 15:00 Height/Weight/BMI: Height 5 ft 9 in Weight 67.2 kg Body Mass Index 22.0 - Constitutional Present: no acute distress, cachectic. Absent: combative, agitated - Routine HEENT Exam Head: Present: normocephalic, atraumatic Eye: Present: EOMI, PERRL, conjunctivae pink. Absent: conjunctival icterus, scleral injection ENT: Present: mucous membranes moist, oropharynx clear, nares patent - Routine Neck Exam Present: supple, full ROM. Absent: JVD, carotid bruit, lymphadenopathy, thyromegaly - Routine Chest/Breast/Axilla Exam Chest wall: Absent: tenderness Axillae: Absent: lymphadenopathy - Routine Respiratory Exam Present: CTA bilaterally. Absent: accessory muscle use, rales, rhonchi, wheezes - Routine Cardiovascular Exam Present: RRR (with occasional ectopy). Absent: S3, S4 - Routine Abdominal Exam Present: soft, normoactive bowel sounds, non distended, non tender Comments: PEG tube in place with binder - Routine Extremities Exam Absent: cyanosis, clubbing, edema Comments: Markedly decreased muscle mass - Routine Skin Exam Present: intact. Absent: cyanosis, erythema, mottling, petechiae, urticaria, jaundice - Routine Neurological Exam Present: alert, CN II-XII intact - Routine Psychiatric Exam Present: cooperative. Absent: normal thought process (much improved cognition however), depressed, anxious Internal Medicine Results - Labs CBC & Chem 7: 11/11/17 04:01 11/11/17 04:01 Labs: Urine 11/12/17 Range/Units 08:09 Urine Color Yellow (YELLOW) Urine Clarity Clear Urine pH 7.5 (5.0-8.0) Ur Specific [place] 1.010 L (1.015-1.025) Urine Protein Negative (NEGATIVE) Urine Glucose (UA) Negative (NEGATIVE) Progress Note-A&P - Time Spent With Patient Total time spent is greater than 50% in coordination of care (as documented) at patient's floor/unit and/or counseling patient: 25 - 35 minutes (1) Dysphagia Problem details: Oropharyngeal Status: Acute Current Visit: Yes (2) Protein-calorie malnutrition, severe Status: Acute Assessment and plan: Patient stated feedings were advanced to bolus feedings. Current Visit: Yes (3) Excessive weight loss Status: Acute Current Visit: Yes (4) Mental status change Status: Acute Assessment and plan: His delirium appears to be clearing. He was able to converse freely and make sense with family and staff today. He still cognitively slow. He is not combative, he has been cooperative with physical therapy. Current Visit: Yes (5) Prostate cancer metastatic to intrapelvic lymph node Status: Chronic Current Visit: Yes (6) Dysphasia Status: Acute Current Visit: Yes (7) Alkaline phosphatase elevation Status: Acute Current Visit: Yes (8) Liver enzyme elevation Status: Acute Current Visit: Yes - Assessment and Plan I will recheck his labs tomorrow including his preoperative human to test the effectiveness of his nutrition. If he continues to improve like this, I would ask that he be reassessed by inpatient rehabilitation. Hospital Course Summary Disclaimer: The visit summary below is not to be considered part of the above Progress Note. Hospital Course: 11/10/17 17:31 PT remains confused but reportedly no behaviors noted. Recommend continuing Haldol
[2017-11-12] MEDS ORDERED: FALL RISK - PHARMACY CONSULT XX ONE (21:42)
[2017-11-13] MEDS: HALOPERIDOL 5 MG/ML INJECTION IVP PRN
[2017-11-13] MEDS: ACETAMINOPHEN 500 MG TABLET PEG PRN (02:11)
[2017-11-13] MEDS: PROPRANOLOL 20 MG/5 ML PEG SCH ×3 (05:59→22:01)
[2017-11-13] MEDS: SUCRALFATE 1gm/10ml ORAL LIQUID PEG SCH ×4 (06:00→21:00)
[2017-11-13] MEDS: PANTOPRAZOLE 40 MG TABLET PEG SCH ×2 (06:00→16:39)
[2017-11-13] MEDS: GABAPENTIN 250 MG/5 ML PEG SCH ×3 (10:00→22:01)
[2017-11-13] MEDS: HALOPERIDOL 5 MG/ML INJECTION IVP SCH (10:01)
[2017-11-13] MEDS: MULTI VITAMIN PEG SCH (10:01)
[2017-11-13] MEDS: SALINE FLUSH 10ml SYRINGE IV PRN (10:02)
[2017-11-13] MEDS ORDERED: HALOPERIDOL 5 MG/ML INJECTION IM PRN (12:02)
[2017-11-13] MEDS ORDERED: LORazepam 0.5 MG TABLET PO PRN (12:03)
--- NOTE | 2017-11-13 12:06 | Progress Note ---
Progress Note: Discussed patient's behavior with nursing staff. Patient continues to be quite confused, have disrupted sleep cycle, etc. all characteristic and expected with delirium. I believe delirium will be persistent given patient's underlying medical conditions. I have made the following changes to his medications: - Change Haldol to 0.5mg via PEG in AM and 1mg via PEG at HS - Changed PRN Haldol and lorazepam to IM rather than IV - Started melatonin 5mg q HS via PEG to target disrupted sleep cycle
--- NOTE | 2017-11-13 18:36 | Internal Med Progress Note ---
Internal Medicine Subjective Patient seen and examined in his room. at the bedside. Questions answered. Roger has taken a step backwards today. He did not sleep at all last night according to the nursing staff. He has been more confused today. He did not walk with physical therapy that I can see. He is also becoming incontinent of urine unable to make it to the bathroom in time. Clinically may need to entertain the possible diagnosis of NPH. He does have ataxia although he has lost a considerable amount of muscle mass. He has delirium versus other cause for his decrease in cognition. And now he has urinary incontinence which together make up the trifecta of NPH Exam Vital Signs: Temperature 96.7 F L 11/13/17 13:09 Pulse Rate 73 11/13/17 13:09 Respiratory Rate 16 11/13/17 13:09 Blood Pressure 117/64 11/13/17 13:09 Pulse Oximetry 94 11/13/17 13:09 Height/Weight/BMI: Height 5 ft 9 in Weight 67 kg Body Mass Index 22.0 - Constitutional Present: no acute distress (but confused), agitated - Routine HEENT Exam Head: Present: normocephalic, atraumatic Eye: Present: EOMI, PERRL, conjunctivae pink. Absent: conjunctival icterus, scleral injection ENT: Present: mucous membranes moist, oropharynx clear, nares patent - Routine Respiratory Exam Present: CTA bilaterally. Absent: accessory muscle use - Routine Cardiovascular Exam Present: RRR. Absent: S3, S4 - Routine Abdominal Exam Present: soft, normoactive bowel sounds, non distended, non tender. Absent: rebound, guarding, rigid - Routine Extremities Exam Absent: cyanosis, clubbing, edema - Routine Skin Exam Present: intact. Absent: cyanosis, mottling, petechiae, urticaria, jaundice - Routine Neurological Exam Present: moving all extremities. Absent: alert (but awake), oriented X3 - Routine Psychiatric Exam Present: cooperative (easily redirected). Absent: normal affect, normal thought process, good insight, good judgment Internal Medicine Results - Labs CBC & Chem 7: 11/11/17 04:01 11/13/17 04:21 Labs: BMP 11/13/17 04:21 Sodium 139 Potassium 3.6 Chloride 105 Carbon Dioxide 30 BUN 14.0 Creatinine 0.5 L Glucose 96 Calcium 8.6 Liver Function 11/13/17 Range/Units 04:21 Total Bilirubin 0.20 (0.20-1.30) MG/DL AST 160 H (17-59) U/L ALT 70 (21-72) U/L Alkaline Phosphatase 215 H (38-126) U/L Albumin 2.9 L (3.5-5.0) G/DL Progress Note-A&P - Time Spent With Patient Total time spent is greater than 50% in coordination of care (as documented) at patient's floor/unit and/or counseling patient: 25 - 35 minutes (1) Dysphagia Problem details: Oropharyngeal Status: Acute Current Visit: Yes (2) Protein-calorie malnutrition, severe Status: Acute Assessment and plan: Patient stated feedings were advanced to bolus feedings. Current Visit: Yes (3) Excessive weight loss Status: Acute Current Visit: Yes (4) Mental status change Status: Acute Assessment and plan: His delirium appears to be clearing. He was able to converse freely and make sense with family and staff today. He still cognitively slow. He is not combative, he has been cooperative with physical therapy. 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 He did not sleep well last night is more agitated today and has decreased cognition. Let's see how he sleeps overnight and if he still has ataxia and confusion and urinary incontinence tomorrow I will consider having anesthesia do a spinal tap and removed 25 cc of fluid and see if his condition improves overnight. This would be consistent with NPH. Otherwise, I believe this is simply delirium or possibly Warneke's. Hospital Course Summary Disclaimer: The visit summary below is not to be considered part of the above Progress Note. Hospital Course: 11/10/17 17:31 PT remains confused but reportedly no behaviors noted. Recommend continuing Haldol
--- NOTE | 2017-11-13 21:27 | Progress Note ---
DATE 11/13/2017 POSTOP DAY #11 HISTORY The nurse that took care of the patient overnight last night reported the patient did not get any sleep at all throughout the night until about 0530 hours. The patient has been receiving IV Haldol on a scheduled basis. In addition to the scheduled IV Haldol, the patient did require administration of p.r.n. Haldol during the night last night due to increased restlessness. The patient's legs were constantly moving and he was picking at his gown and picking at the abdominal binder. After the patient received the p.r.n. dose of Haldol, he had several episodes of hallucination with the patient grabbing at things that were not present. The patient was hearing noises that were not present. The patient has been incontinent of urine throughout the day today. The patient has not been oriented to place or time. The patient has required a sitter in the room with him on a one-to-one basis to prevent the patient from pulling out his PEG tube. A referral was made to the inpatient rehabilitation unit to reevaluate the patient for admission to the inpatient rehabilitation unit. The case was reviewed by the medical scheduler for the inpatient rehabilitation unit who is Dr. Koehler. Dr. Koehler has advised us that the patient still does not meet admission criteria for the inpatient rehabilitation unit. The patient is tolerating his tube feedings well. The patient continues to require one-to-one care with the nurse to keep him from pulling out his percutaneous endoscopic gastrostomy tube. Dr. Sammi Gerard did discuss the behavior of the patient with the nursing staff today. Dr. Sammi Gerard states in her progress note that the patient continues to be quite confused which is expected with the delirium. Dr. Gerard states in her progress note that she believes the delirium will be persistent given the patient's underlying medical conditions. Dr. Gerard did tell the nurses that the delirium might never improve. Dr. Gerard did make some changes to the medications for this patient today. She did change the scheduled Haldol from IV administration to administration through the PEG tube. The patient has the scheduled Haldol changed to 0.5 mg via the PEG tube in the morning and 1 mg via the PEG tube at bedtime. Dr. Gerard did also change the p.r.n. Haldol and the p.r.n. lorazepam to IM administration rather than IV administration. Dr. Gerard did start the patient on melatonin 5 mg at bedtime via the PEG tube to help with the disrupted sleep cycle. PHYSICAL EXAMINATION VITAL SIGNS: Temperature is 96.7 degrees Fahrenheit axillary. Pulse is 73. Respiratory rate is 16. Blood pressure is 117/64. Oxygen saturation is 94% on room air. ABDOMEN: The dressings and binder are left in place over the PEG tube site at this time. LABORATORY DATA Serum sodium is 139 today. Serum potassium is 3.6. Serum creatinine is 0.5. AST is 160. Alkaline phosphatase is 215. Total protein is 6.2. Serum albumin is 2.9. Serum prealbumin is 15.6. IMPRESSION 1. Oropharyngeal dysphagia. 2. Protein calorie malnutrition with decreased serum albumin, serum prealbumin and serum total protein. 3. Weight loss. 4. Status post esophagogastroduodenoscopy with placement of percutaneous endoscopic gastrostomy tube on 11/02/2017. 5. Duodenal ulcer. 6. Recent active upper gastrointestinal tract bleeding from duodenal ulcer. 7. Delirium due to multiple etiologies with confusion, disorientation, agitation and restlessness. There is still enough confusion and disorientation that the patient is at risk for pulling out his percutaneous endoscopic gastrostomy tube unless there is a sitter in the room with him providing one-to- one care to prevent him from doing this. 8. Personal history of metastatic prostate cancer. PLAN 1. Continue tube feedings with Nutren Pulmonary complete liquid nutrition via the percutaneous endoscopic gastrostomy tube. 2. Continue Protonix and Carafate via the percutaneous endoscopic gastrostomy tube. 3. Continue medical management by Dr. Avalos. 4. Continue neuropsychiatric management by Dr. Sammi Gerard. 5. Continue to work on plans for disposition of the patient following this acute care hospitalization. A referral was made to the inpatient rehabilitation unit today for reevaluation for admission of the patient. We have been advised that the patient does not meet admission criteria for the inpatient rehabilitation unit at [facility] at this time. The patient does continue to require one-to-one care with a sitter present in the room to keep him from pulling out his percutaneous endoscopic gastrostomy tube at this time. [facility]
[2017-11-13] MEDS: MELATONIN 5 MG TABLET PO SCH (22:00)
[2017-11-13] MEDS: HALOPERIDOL 0.5 MG TABLET PO SCH (22:00)
[2017-11-14] MEDS: ACETAMINOPHEN 500 MG TABLET PEG PRN ×2 (01:20→12:22)
[2017-11-14] MEDS: PANTOPRAZOLE 40 MG TABLET PEG SCH ×2 (05:52→16:48)
[2017-11-14] MEDS: SUCRALFATE 1gm/10ml ORAL LIQUID PEG SCH ×4 (05:52→20:10)
[2017-11-14] MEDS: PROPRANOLOL 20 MG/5 ML PEG SCH ×3 (06:38→20:10)
[2017-11-14] MEDS: MULTI VITAMIN PEG SCH (10:44)
[2017-11-14] MEDS: GABAPENTIN 250 MG/5 ML PEG SCH ×3 (10:45→22:00)
--- NOTE | 2017-11-14 17:49 | Internal Med Progress Note ---
Internal Medicine Subjective Patient seen and examined in his room. at the bedside. Questions answered. Roger appears improved over yesterday. It seems that he had a better night sleep last night. Physical therapy does not appear to worked with him yet again today. Occupational therapy did work with him. However, I need him to be upright and standing and walking daily. He had several hours today where he was able to sit up in the recliner and communicate effectively with his family. At this point, he is sleeping. He awakens but then falls back to sleep. We did discuss transferring to [facility] in the next day or so. Exam Vital Signs: Temperature 98.1 F 11/14/17 07:14 Pulse Rate 79 11/14/17 12:24 Respiratory Rate 24 11/14/17 07:14 Blood Pressure 101/63 11/14/17 12:24 Pulse Oximetry 90 11/14/17 07:14 Height/Weight/BMI: Height 5 ft 9 in Weight 68 kg Body Mass Index 22.0 - Constitutional Present: no acute distress, cachectic, somnolent - Routine HEENT Exam Head: Present: normocephalic, atraumatic Eye: Present: conjunctivae pink. Absent: conjunctival icterus, scleral injection ENT: Present: mucous membranes dry, nares patent - Routine Respiratory Exam Present: CTA bilaterally. Absent: accessory muscle use - Routine Cardiovascular Exam Present: RRR. Absent: S3, S4 - Routine Abdominal Exam Present: soft, normoactive bowel sounds. Absent: rebound, guarding, rigid - Routine Skin Exam Present: intact. Absent: erythema, pallor, mottling, petechiae, urticaria, jaundice - Routine Neurological Exam Absent: alert - Routine Psychiatric Exam Present: normal affect, good insight, unable to assess Internal Medicine Results - Labs CBC & Chem 7: 11/11/17 04:01 11/13/17 04:21 Progress Note-A&P - Time Spent With Patient Total time spent is greater than 50% in coordination of care (as documented) at patient's floor/unit and/or counseling patient: 25 - 35 minutes (1) Dysphagia Problem details: Oropharyngeal Status: Acute Current Visit: Yes (2) Protein-calorie malnutrition, severe Status: Acute Assessment and plan: Mr. 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 Tomas appears to do much better during the day when he is able to sleep at night. I did discuss with his family was at the bedside possibility of transferring to [facility] in the next day or 2. Hospital Course Summary Disclaimer: The visit summary below is not to be considered part of the above Progress Note. Hospital Course: 11/10/17 17:31 PT remains confused but reportedly no behaviors noted. Recommend continuing Haldol
--- NOTE | 2017-11-14 19:23 | Progress Note ---
Progress Note: Attempted to call patient's Chetna ([phone]) to discuss diagnosis of delirium, chronic nature, prognosis given patient's underlying medical problems , etc. Left voicemail; will attempt to touch base with her again in the morning.
[2017-11-14] MEDS: HALOPERIDOL 0.5 MG TABLET PO SCH (20:09)
[2017-11-14] MEDS: MELATONIN 5 MG TABLET PO SCH (20:10)
[2017-11-15] MEDS: PROPRANOLOL 20 MG/5 ML PEG SCH ×2 (05:22→13:00)
[2017-11-15] MEDS: SUCRALFATE 1gm/10ml ORAL LIQUID PEG SCH ×2 (05:31→13:09)
[2017-11-15] MEDS: PANTOPRAZOLE 40 MG TABLET PEG SCH (05:31)
--- NOTE | 2017-11-15 07:05 | Progress Note ---
DATE 11/14/2007 POSTOP DAY #12 HISTORY The nurse that took care of the patient overnight last night reports that the patient did continue to require one-to-one care with a sitter due to confusion and agitation at times. The patient did become agitated at different times. The patient continues to tolerate his tube feedings well. The case making machine operator for the patient continues to work on discharge planning for the patient. I did talk with the product manager today. The nurses report that the patient continues to require one-to-one care with a sitter to keep the patient from pulling out his percutaneous endoscopic gastrostomy tube due to periodic confusion, disorientation, and agitation. PHYSICAL EXAMINATION VITAL SIGNS: Temperature is 98.1 degrees Fahrenheit oral. Pulse is 79. Respiratory rate is 24. Blood pressure is 117/67. Oxygen saturation is 90% on room air. ABDOMEN: The binder and dressings were left in place over the percutaneous endoscopic gastrostomy tube site today at the time of my examination of the patient. IMPRESSION 1. Oropharyngeal dysphagia. 2. Protein calorie malnutrition with decreased serum albumin, serum prealbumin and serum total protein. 3. Weight loss. 4. Status post esophagogastroduodenoscopy with placement of percutaneous endoscopic gastrostomy tube on 11/02/2017. 5. Duodenal ulcer. 6. Recent active upper gastrointestinal tract bleeding from duodenal ulcer. 7. Delirium due to multiple etiologies with confusion, disorientation, agitation and restlessness. There is still enough confusion and disorientation and agitation that the patient is at risk for pulling out his percutaneous endoscopic gastrostomy tube unless there is a sitter in the room with him providing one-to-one care to prevent him from doing this. 8. Personal history of metastatic prostate cancer. PLAN 1. Continue tube feedings with Nutren Pulmonary Complete liquid nutrition via the percutaneous endoscopic gastrostomy tube. 2. Continue Protonix and Carafate via the percutaneous endoscopic gastrostomy tube. 3. Continue medical management by Dr. Avalos. 4. Continue neuropsychiatric management by Dr. Sammi Gerard. 5. Continue to work on plans for disposition of the patient following this acute care hospitalization. The patient does continue to require one-to-one care with a sitter present in the room to keep him from pulling out his percutaneous endoscopic gastrostomy tube at this time. DESHAUN
[2017-11-15 07:12] VITALS: BP 108/64; PULSE 84; RESP 18; TEMP 97.8; O2SAT 91
[2017-11-15] MEDS: GABAPENTIN 250 MG/5 ML PEG SCH (08:59)
[2017-11-15] MEDS: MULTI VITAMIN PEG SCH (08:59)
[2017-11-15] MEDS: ACETAMINOPHEN 500 MG TABLET PEG PRN (08:59)
[2017-11-15] MEDS ORDERED: MELATONIN 5 MG TABLET PO SCH ×2 (10:40→21:00)
--- NOTE | 2017-11-15 13:42 | Discharge Summary ---
Discharge Information Date of admission: 11/03/17 16:47 Attending Physician: Laureano Cabrera MD Primary care physician: Prince Avalos DO Consults: 11/02/17 IRU Screening [Inpatient Rehab Screening] [CONS] Routine Screen requested by:: Physician 11/02/17 12:02 Physician Consult [CONS] Routine Consulting Provider: Ed Valdez Reason For Exam: SNU Ordering Provider has Notified Carry In Worker: Yes 11/02/17 12:53 Physician Consult [CONS] Routine Consulting Provider: Alon Lange Reason For Exam: SNU Ordering Provider has Notified Carry In Worker: Yes 11/03/17 10:51 Physician Consult [CONS] Routine Consulting Provider: Prince Avalos Reason For Exam: medical management Ordering Provider has Notified Carry In Worker: Yes 11/04/17 11:23 Dietary Consult [CONS] Routine Comment: Reason For Exam: 11/05/17 11:49 Physician [Physician Consult] [CONS] Routine Consulting Provider: [facility] Reason For Exam: CONT CARE Ordering Provider has Notified Carry In Worker: Yes 11/06/17 Generations Screen [CONS] Routine Screen requested by:: Case Management Comment Text:: mental status change attempts to pull out new peg tube and antipsychotic med use 11/06/17 09:12 Physician Consult [CONS] Routine Consulting Provider: Sammi Gerard Reason For Exam: med management Ordering Provider has Notified Carry In Worker: Yes Comment: med management 11/13/17 IRU Screening [Inpatient Rehab Screening] [CONS] Routine Screen requested by:: Physician - Discharge Diagnosis (1) Dysphagia Status: Acute (2) Protein-calorie malnutrition, severe Status: Acute (3) Excessive weight loss Status: Acute (4) Mental status change Status: Acute (5) 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 For more details refer to the complete medical record. Hospital course: 11/10/17 17:31 PT remains confused but reportedly no behaviors noted. Recommend continuing Haldol Time spent with patient: greater than 35 minutes DVT Prophylaxis: SCD's, [facility] Prophylaxis: Protonix Discharge Plan - Med Rec/Dispo Referrals/Follow Up: Prince Avalos DO [Family Provider] - Prescriptions: New Melatonin 10 mg PO HS #30 tab Multi-Vitamin Oral Liq [Theragran Liq] 5 ml PEG DAILY 30 Days #150 ml Pantoprazole Tab [Protonix Tab] 40 mg PEG ACBID #60 tab Propranolol Oral Liq [Inderal] 20 mg PEG Q8H 30 Days #90 tab Sucralfate Oral Liq [Carafate Slurry] 1 gm PEG 0630,1130,1630,2030 30 Days # 1200 ml Thiamine HCl 100 mg PEG DAILY tablet Acetaminophen [Tylenol] 1,000 mg PEG Q8HR PRN tablet PRN Reason: Discomfort Gabapentin Oral Liq [Neurontin Liquid] 100 mg PEG TID #90 tab Continue Cetirizine [Zyrtec] 10 mg PO HS Budesonide 0.5 mg AEROSOL QID PRN PRN Reason: Prn Orders clonazePAM [Clonazepam] 0.5 mg PO TID PRN PRN Reason: Anxiety Timolol Maleate [Timoptic-Xe] 1 drop LEFT EYE HS #0 Discontinued Tramadol [Ultram] 50 mg PO Q6H PRN PRN Reason: Pain Metoprolol Succinate 12.5 mg PO HS Sennosides/Docusate Sodium [Senna-S Tablet] 1 tab PO DAILY PRN PRN Reason: Constipation Nystatin Oral Liq. [Mycostatin] 5 ml PO QID - Disposition 01 Discharged Home, Self-Care - Dismissal Complete Discharge Instructions are:: Complete
--- NOTE | 2017-11-16 15:38 | Right on Track Program ---
Right on Track Program Date of Discharge: 11/15/17 Home Medications: Home Medications Medication Instructions Recorded Confirmed Timolol Maleate [Timoptic-Xe] 1 drop LEFT EYE HS #0 08/08/16 11/02/17 Cetirizine [Zyrtec] 10 mg PO HS 10/01/17 11/02/17 Budesonide 0.5 mg AEROSOL QID PRN 10/21/17 11/02/17 clonazePAM [Clonazepam] 0.5 mg PO TID PRN 10/21/17 11/02/17 Previous Rx's Medication Instructions Recorded Acetaminophen [Tylenol] 1,000 mg PEG Q8HR PRN tab 11/15/17 Gabapentin Oral Liq [Neurontin 100 mg PEG TID #90 tab 11/15/17 Liquid] Melatonin 10 mg PO HS #30 tab 11/15/17 Multi-Vitamin Oral Liq [Theragran 5 ml PEG DAILY 30 Days #150 ml 11/15/17 Liq] Pantoprazole Tab [Protonix Tab] 40 mg PEG ACBID #60 tab 11/15/17 Propranolol Oral Liq [Inderal] 20 mg PEG Q8H 30 Days #90 tab 11/15/17 Sucralfate Oral Liq [Carafate 1 gm PEG 0630,1130,1630,2030 30 11/15/17 Slurry] Days #1200 ml Thiamine HCl 100 mg PEG DAILY tab 11/15/17 - Right on Track Program 24-hour phone call Date: 11/16/17 Right on Track Program: 24 Hour Follow-Up Discharge Summary Received: Yes Care Plan Received: Yes Follow Up: Follow Up Appointment Scheduled (11/22/[address] Avalos) Referral: Primary Care Physician, Home Health Comments: I spoke with Kassie Domingo on 11/16/17. Roger is doing well, and his mental status has cleared. She feels like tube feeds are going well, but admits that it's been a lot to learn. Home Health has already been out to visit today, and she was grateful for that. She was able to fill the new Rx and denied any questions on those at this time. F/U appt has been scheduled with Dr. Avalos on 11/22/17. Discussed With Patient and Caregiver: Yes Recommendations For Follow-up: IMPRESSION 1. 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 Duodenal ulcer 3. Delirium, improving 4. Metastatic prostate cancer 5. Chronic conditions include: CAD, HTN, COPD PLAN Continue Home Health, tube feeds. D/W Dr. Avalos - had some concern about pulling out PEG tube d/t delirium but this is improving per spouse. Home visit planned for 11/21/17 at 9:45 am. [facility] visit Right on Track Program: 7-14 Day [id number] Discharge Summary Received: Yes Care Plan Received: Yes Follow Up: Follow Up Appointment Scheduled (11/22/[address] Avalos) Education: Diagnosis Education Reviewed, Education Provided To Caregiver Referral: Primary Care Physician, Home Health Comments: I visited Mr. Domingo at his home in [place] on 11/21/17. He is receiving 24- hour care from [facility]. His , daughter, and son-in- law were present, as well as a therapist from Home Health. He is in a lot of pain mostly to his back but he also complains of arms and neck pain. He sometimes refuses to move or help participate in changing positions. He is able to stand up and use his walker, but walks hunched over, with his head hanging down, his shoulders rounded, and slight flexion in his hips. They are worried about how they will get him from the house to the car for his scheduled appointment tomorrow. Tylenol is not sufficiently controlling his pain; they recently added methocarbamol, but had to cut it back to a tablet due to drowsiness. He cannot tolerate sitting upright for tube feeds and family has opted to give the feedings while hes lying flat they understand the ramifications and risks for aspiration. They cut back from 5 feedings per day to 4 because they felt he was getting too full. He also complains of a cold and is bringing up green, thick sputum, though sometimes he isnt able to clear his own secretions. His has a nebulizer at home, and she inquired about giving him breathing treatments when hes short of breath. His organizes all of his medications, and denied having any questions about them. We also discussed Advanced Directives: theyve talked about designating a DPOA but haven t done that yet. He is a DNR. Cognitively he is doing better compared to when he was in the hospital, and is close to his mental baseline. His and daughter both question whether or not they made the right decision about the feeding tube, and they feel like he has a poor quality of life. They indicated that they dont think hed want to live like this. We talked about incorporating more palliative care, understanding that some of the medications to control pain will result in drowsiness. We also discussed that if he does not improve, that they may consider hospice as an option, and they both nodded and stated theyve already considered hospice and alf placement (which they know Aaron would be against). They have an appointment with Dr. Avalos on , and intend to discuss pain control, tube feedings, and goals of care. EXAM: General: initially Aaron was in bed, lying on his side. Later I watched him walk to the bathroom with a stooped posture as described above. He was hard of hearing but alert and appropriate. He was cachectic and appeared frail. HEENT: Large amount of thick secretions in mouth. Mucous membranes were very dry. Lungs: Clear initially, but later he coughed up phlegm and he had faint wheezing which spontaneously improved. Cardiac: RRR Abdomen: Tube is clean, ostomy site is well cared for. Bowel sounds positive; nontender. Extremities: Muscle atrophy, no edema. Recommendations For Follow-up: IMPRESSION 1. 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 Duodenal ulcer 3. Delirium, improving 4. Metastatic prostate cancer 5. Chronic conditions include: CAD, HTN, COPD PLAN 1. Emphasized importance of naming DPOA I have [place] [facility] [place] facilitate this. 2. Begin nebulized treatments for SOA 3. Discussed high risk of aspiration 4. Recommended to discuss pain control options with Dr. Avalos 5. Consider palliative care, placement, and/or hospice if he fails to show significant improvement I encouraged further family discussions about what Aaron s goals of care entail.
== END 2017-11-15 14:52 | disposition home health service (06) | DRG 391 ==
LOC: SUR 06:47 → SRG 09:40
PROVIDERS: ADMIT Surgery; ATTEND Surgery